=== PATIENT | male | born 1950 | race Caucasian/White ===

== ENCOUNTER 2017-11-27 23:31 | Emergency (ER) | payer MEDICARE, OTHER ==
[~2017-11-27] VITALS: Ht 188 cm; Wt 98.0 kg
[~2017-11-27 23:31] MED LIST: ASPI325; CARB200 PO; CLIN300; COU; CYAN1000; CYAN1000I; CYAN1000I IM; Coumadin; ENOX120I SC; ERGO400 PO; GABA300; HYDACE5 PO; HYDR1TAB94 PO; Hair, Skin & N1 EACH PO; LAMO100 PO; LISI10; Norco 5-325 Ta1 EACH PO; OXYACE5T PO; RXOXYACE PO; TRAM50 PO; WARF10; WARF10 PO; WARF5 PO
[2017-11-28 00:33] LABS: BASOPHILS ABSOLUTE AUTO 0.04 K/mm3 (0.00-0.23); BASOPHILS PERCENT AUTO 1 % (0-2); EOSINOPHILS ABSOLUTE AUTO 0.15 K/mm3 (0.00-0.68); EOSINOPHILS PERCENT AUTO 3 % (0-6); Hematocrit 31.8 % (37.0-53.0); Hemoglobin 10.8 g/dL (13.5-17.5); IMMATURE GRAN ABSOLUTE AUTO 0.01 K/mm3 (0.00-0.10); IMMATURE GRAN PERCENT AUTO 0 % (0-1); LYMPHOCYTES ABSOLUTE AUTO 1.28 K/mm3 (0.84-5.20); LYMPHOCYTES PERCENT AUTO 29 % (21-46); MONOCYTES ABSOLUTE AUTO 0.56 K/mm3 (0.16-1.47); MONOCYTES PERCENT AUTO 13 % (4-13); Mean Corpuscular HGB 33.1 pg (26.0-34.0); Mean Corpuscular Volume 98 fL (80-100); Mean Platelet Volume 8.3 fL (9.1-12.4); NEUTROPHILS ABSOLUTE AUTO 2.34 K/mm3 (1.96-9.15); NEUTROPHILS PERCENT AUTO 54 % (41-73); Platelet Count 226 K/mm3 (150-400); RDW Coefficient Variation 13.4 % (11.7-14.2); RDW Standard Deviation 48.6 fL (35.1-46.3); Red Blood Cell Count 3.26 M/mm3 (4.30-5.90); White Blood Cell Count 4.38 K/mm3 (4.00-11.30)
[2017-11-28 00:52] LABS: Alanine Aminotransfer (ALT/SGP 26 U/L (12-78); Albumin, Blood 3.7 g/dL (3.4-5.0); Albumin/Globulin Ratio 1.1 (0.8-1.8); Alk Phos 83 U/L (50-136); Anion Gap 8 mmol/L (6-16); Aspartate Aminotrans (AST/SGOT 19 U/L (12-37); Bilirubin, Total 0.4 mg/dL (0.1-1.0); Blood Urea Nitrogen 14 mg/dL (8-24); Bun/Creatinine Ratio 16.7 (12.0-20.0); CO2, Blood 28 mmol/L (21-32); Calcium, Blood 8.5 mg/dL (8.5-10.1); Chloride, Blood 97 mmol/L (98-108); Creatinine, Blood 0.84 mg/dL (0.60-1.20); Globulin, Blood 3.5 g/dL (2.2-4.0); Glomerular Filtration Rate >60 (60-); Glucose, Blood 88 mg/dL (70-99); Potassium, Blood 4.3 mmol/L (3.5-5.5); Sodium, Blood 133 mmol/L (136-145); Total Protein, Blood 7.2 g/dL (6.4-8.2)
[2017-11-28 02:31] LABS: International Normalized Ratio 2.3; Prothrombin Time Results 24.5 Sec (9.7-11.5)
== END 2017-11-28 02:39 | disposition home or self-care (01) ==
LOC: ER 23:31
PROVIDERS: Emergency Medicine
DX: S80.01XA Contusion of right knee, initial encounter (principal); D68.51 Activated protein C resistance; F17.210 Nicotine dependence, cigarettes, uncomplicated; Z88.0 Allergy status to penicillin; Z88.8 Allergy status to other drugs, medicaments and biological substances; Z91.09 Other allergy status, other than to drugs and biological substances; Z88.6 Allergy status to analgesic agent; Z91.02 Food additives allergy status; Z91.018 Allergy to other foods; Z79.01 Long term (current) use of anticoagulants; Z79.899 Other long term (current) drug therapy; Z86.73 Personal history of transient ischemic attack (TIA), and cerebral infarction without residual deficits; X58.XXXA Exposure to other specified factors, initial encounter
CPT/HCPCS: 36415; 80053; 85025; 85610; 85730; 93971; 99284

== ENCOUNTER → 2019-04-30 | Outpatient (CLI) | payer MEDICARE, OTHER | END | disposition home or self-care (01) | LOC: LAB SHORT 07:36 → LAB 07:36 | PROVIDERS: Nurse Practitioner | DX: Z12.5 Encounter for screening for malignant neoplasm of prostate (principal); N39.8 Other specified disorders of urinary system; N39.0 Urinary tract infection, site not specified | CPT/HCPCS: 87086; G0103 ==

== ENCOUNTER 2019-07-20 20:55 | Emergency (ER) | payer MEDICARE, OTHER ==
[~2019-07-20] VITALS: Ht 188 cm; Wt 108.9 kg
[2019-07-20 21:36] LABS: BASOPHILS ABSOLUTE AUTO 0.08 K/mm3 (0.00-0.23); BASOPHILS PERCENT AUTO 1 % (0-2); EOSINOPHILS ABSOLUTE AUTO 0.21 K/mm3 (0.00-0.68); EOSINOPHILS PERCENT AUTO 3 % (0-6); Hematocrit 38.7 % (37.0-53.0); Hemoglobin 12.6 g/dL (13.5-17.5); IMMATURE GRAN ABSOLUTE AUTO 0.02 K/mm3 (0.00-0.10); IMMATURE GRAN PERCENT AUTO 0 % (0-1); LYMPHOCYTES PERCENT AUTO 13 % (21-46); MONOCYTES ABSOLUTE AUTO 0.99 K/mm3 (0.16-1.47); MONOCYTES PERCENT AUTO 13 % (4-13); Mean Corpuscular HGB 31.7 pg (26.0-34.0); Mean Corpuscular HGB Conc 32.6 g/dL (31.5-36.5); Mean Corpuscular Volume 97 fL (80-100); Mean Platelet Volume 8.3 fL (9.1-12.4); NEUTROPHILS ABSOLUTE AUTO 5.19 K/mm3 (1.96-9.15); NEUTROPHILS PERCENT AUTO 69 % (41-73); Platelet Count 251 K/mm3 (150-400); RDW Coefficient Variation 13.3 % (11.7-14.2); RDW Standard Deviation 48.2 fL (35.1-46.3); Red Blood Cell Count 3.98 M/mm3 (4.30-5.90); White Blood Cell Count 7.49 K/mm3 (4.00-11.30)
[2019-07-20 21:50] LABS: Source, Urine Clean Catch
[2019-07-20 21:53] LABS: Alanine Aminotransfer (ALT/SGP 31 U/L (12-78); Albumin, Blood 3.7 g/dL (3.4-5.0); Albumin/Globulin Ratio 0.9 (0.8-1.8); Alk Phos 110 U/L (50-136); Anion Gap 6 mmol/L (6-16); Aspartate Aminotrans (AST/SGOT 44 U/L (12-37); Bilirubin, Total 0.3 mg/dL (0.1-1.0); Blood Urea Nitrogen 14 mg/dL (8-24); CO2, Blood 28 mmol/L (21-32); Calcium, Blood 8.9 mg/dL (8.5-10.1); Chloride, Blood 102 mmol/L (98-108); Creatinine, Blood 1.17 mg/dL (0.60-1.20); Glomerular Filtration Rate >60 (60-); Glucose, Blood 107 mg/dL (70-99); Potassium, Blood 3.9 mmol/L (3.5-5.5); Sodium, Blood 136 mmol/L (136-145); Total Protein, Blood 7.7 g/dL (6.4-8.2)
[2019-07-20 21:53] LABS: Bilirubin, Urine Neg (Neg); Blood, Urine 5+ (Neg); Glucose Qualitative, Urine Neg (Neg); Ketones, Urine Neg (Neg); Leukocyte Esterase, Urine Neg (Neg); Nitrite, Urine Neg (Neg); Protein, Urine 2+ (Neg); Urobilinogen, Urine NORM (Normal)
[2019-07-20 22:00] LABS: Appearance, Urine Clear (Clear); Color, Urine Yellow (P-Yellow)
[2019-07-20 22:03] LABS: Bacteria Not Seen /hpf; Red Blood Cells, Urine TNTC /hpf (0-2); Squamous Epithelial Cells Not Seen /hpf (Few); White Blood Cells, Urine Not Seen /hpf (0-5)
[2019-07-21] MEDS ORDERED: Belladonna-Opi1 EACH PR (01:17)
== END 2019-07-21 01:30 | disposition home or self-care (01) ==
LOC: ER 20:55
PROVIDERS: Emergency Medicine
DX: R33.9 Retention of urine, unspecified (principal); F17.210 Nicotine dependence, cigarettes, uncomplicated; Z86.73 Personal history of transient ischemic attack (TIA), and cerebral infarction without residual deficits; Z88.0 Allergy status to penicillin; Z88.8 Allergy status to other drugs, medicaments and biological substances; Z91.041 Radiographic dye allergy status; Z91.018 Allergy to other foods; Z79.899 Other long term (current) drug therapy; Z79.01 Long term (current) use of anticoagulants
CPT/HCPCS: 36415; 51702; 74176; 80053; 81001; 83690; 85025; 96361; 96374; 96375; 96376; 99284-25; A9270; J1170; J2405; J7030

== ENCOUNTER 2019-07-22 09:43 | Emergency (ER) | payer MEDICARE, OTHER ==
[~2019-07-22] VITALS: Ht 188 cm; Wt 112.0 kg
[~2019-07-22 09:43] MED LIST changes: +Belladonna-Opi1 EACH PR
[2019-07-22 10:34] LABS: BASOPHILS ABSOLUTE AUTO 0.04 K/mm3 (0.00-0.23); BASOPHILS PERCENT AUTO 0 % (0-2); EOSINOPHILS ABSOLUTE AUTO 0.02 K/mm3 (0.00-0.68); EOSINOPHILS PERCENT AUTO 0 % (0-6); Hematocrit 41.1 % (37.0-53.0); Hemoglobin 13.7 g/dL (13.5-17.5); IMMATURE GRAN ABSOLUTE AUTO 0.06 K/mm3 (0.00-0.10); IMMATURE GRAN PERCENT AUTO 1 % (0-1); LYMPHOCYTES ABSOLUTE AUTO 0.78 K/mm3 (0.84-5.20); LYMPHOCYTES PERCENT AUTO 6 % (21-46); MONOCYTES ABSOLUTE AUTO 1.31 K/mm3 (0.16-1.47); MONOCYTES PERCENT AUTO 10 % (4-13); Mean Corpuscular HGB 31.4 pg (26.0-34.0); Mean Corpuscular HGB Conc 33.3 g/dL (31.5-36.5); Mean Platelet Volume 8.8 fL (9.1-12.4); NEUTROPHILS PERCENT AUTO 83 % (41-73); Platelet Count 296 K/mm3 (150-400); RDW Coefficient Variation 13.2 % (11.7-14.2); RDW Standard Deviation 46.1 fL (35.1-46.3); Red Blood Cell Count 4.37 M/mm3 (4.30-5.90); White Blood Cell Count 13.11 K/mm3 (4.00-11.30)
[2019-07-22 10:43] LABS: Mean Corpuscular Volume 94 fL (80-100)
[2019-07-22 10:47] LABS: Albumin, Blood 3.6 g/dL (3.4-5.0); Albumin/Globulin Ratio 0.8 (0.8-1.8); Bilirubin, Total 0.8 mg/dL (0.1-1.0); Calcium, Blood 8.9 mg/dL (8.5-10.1); Creatinine, Blood 1.36 mg/dL (0.60-1.20); Globulin, Blood 4.4 g/dL (2.2-4.0); Potassium, Blood 4.1 mmol/L (3.5-5.5)
[2019-07-22 11:29] LABS: Source, Urine Clean Catch
[2019-07-22 11:30] LABS: Prothrombin Time Results 43.4 Sec (9.7-11.5)
[2019-07-22 11:34] LABS: Bilirubin, Urine Neg (Neg); Blood, Urine 5+ (Neg); Glucose Qualitative, Urine Neg (Neg); Ketones, Urine Neg (Neg); Leukocyte Esterase, Urine 3+ (Neg); Nitrite, Urine Neg (Neg); Protein, Urine 2+ (Neg); Specific Gravity, Urine 1.005 (1.003-1.022); Urobilinogen, Urine NORM (Normal)
[2019-07-22 11:36] LABS: International Normalized Ratio 4.71
[2019-07-22 11:44] LABS: Appearance, Urine Hazy (Clear); Color, Urine Amber (P-Yellow)
[2019-07-22 11:49] LABS: Bacteria Few /hpf; Red Blood Cells, Urine TNTC /hpf (0-2); Squamous Epithelial Cells Not Seen /hpf (Few)
== END 2019-07-22 14:15 | disposition short-term general hospital (02) ==
LOC: ER 09:43
PROVIDERS: Emergency Medicine; Internal Medicine
DX: N13.30 Unspecified hydronephrosis (principal); Z88.0 Allergy status to penicillin; Z88.8 Allergy status to other drugs, medicaments and biological substances; Z91.09 Other allergy status, other than to drugs and biological substances; Z91.02 Food additives allergy status; Z88.6 Allergy status to analgesic agent; Z91.018 Allergy to other foods; Z79.899 Other long term (current) drug therapy; Z79.01 Long term (current) use of anticoagulants; Z86.73 Personal history of transient ischemic attack (TIA), and cerebral infarction without residual deficits; Z87.891 Personal history of nicotine dependence
CPT/HCPCS: 36415; 51798; 76770; 80053; 81001; 85025; 85610; 96374; 96375; 96376; 99285-25; J1170; J2405

== ENCOUNTER 2019-08-09 03:25 | Inpatient (IN) | payer MEDICARE, OTHER ==
[~2019-08-09] VITALS: Ht 188 cm; Wt 104.2 kg
[2019-08-09] MEDS ORDERED: ENOXAPARIN150 MG/1 M SC (03:56)
[2019-08-09] MEDS ORDERED: ZOFRAN8 MG PO (03:56)
[2019-08-09] MEDS ORDERED: OXYC10TA19 (03:56)
[2019-08-09] MEDS ORDERED: CARVEDILOL6.25 MG PO (03:57)
[2019-08-09 04:01] LABS: BASOPHILS ABSOLUTE AUTO 0.15 K/mm3 (0.00-0.23); BASOPHILS PERCENT AUTO 2 % (0-2); EOSINOPHILS ABSOLUTE AUTO 0.29 K/mm3 (0.00-0.68); EOSINOPHILS PERCENT AUTO 3 % (0-6); Hematocrit 38.9 % (37.0-53.0); Hemoglobin 12.8 g/dL (13.5-17.5); IMMATURE GRAN ABSOLUTE AUTO 0.05 K/mm3 (0.00-0.10); IMMATURE GRAN PERCENT AUTO 1 % (0-1); LYMPHOCYTES ABSOLUTE AUTO 1.37 K/mm3 (0.84-5.20); LYMPHOCYTES PERCENT AUTO 15 % (21-46); MONOCYTES ABSOLUTE AUTO 0.75 K/mm3 (0.16-1.47); MONOCYTES PERCENT AUTO 8 % (4-13); Mean Corpuscular HGB 31.1 pg (26.0-34.0); Mean Corpuscular HGB Conc 32.9 g/dL (31.5-36.5); Mean Corpuscular Volume 95 fL (80-100); Mean Platelet Volume 8.2 fL (9.1-12.4); NEUTROPHILS ABSOLUTE AUTO 6.34 K/mm3 (1.96-9.15); NEUTROPHILS PERCENT AUTO 71 % (41-73); Platelet Count 417 K/mm3 (150-400); RDW Coefficient Variation 13.1 % (11.7-14.2); RDW Standard Deviation 44.9 fL (35.1-46.3); Red Blood Cell Count 4.11 M/mm3 (4.30-5.90); White Blood Cell Count 8.95 K/mm3 (4.00-11.30)
[2019-08-09 04:14] LABS: Alanine Aminotransfer (ALT/SGP 36 U/L (12-78); Albumin, Blood 3.3 g/dL (3.4-5.0); Albumin/Globulin Ratio 0.7 (0.8-1.8); Alk Phos 162 U/L (50-136); Anion Gap 7 mmol/L (6-16); Aspartate Aminotrans (AST/SGOT 33 U/L (12-37); Bilirubin, Total 0.3 mg/dL (0.1-1.0); Blood Urea Nitrogen 9 mg/dL (8-24); Bun/Creatinine Ratio 9.1 (12.0-20.0); CO2, Blood 28 mmol/L (21-32); Calcium, Blood 9.2 mg/dL (8.5-10.1); Chloride, Blood 99 mmol/L (98-108); Creatinine, Blood 0.99 mg/dL (0.60-1.20); Globulin, Blood 4.9 g/dL (2.2-4.0); Glomerular Filtration Rate >60 (60-); Glucose, Blood 104 mg/dL (70-99); Potassium, Blood 4.4 mmol/L (3.5-5.5); Sodium, Blood 134 mmol/L (136-145); Total Protein, Blood 8.2 g/dL (6.4-8.2)
[2019-08-09 05:56] LABS: Magnesium, Blood 2.2 mg/dL (1.6-2.4)
[2019-08-09 05:58] LABS: Thyroid Stimulating Hormone 2.76 uIU/mL (0.360-4.800)
[2019-08-09] MEDS ORDERED: LEVSOD50 PO (06:26)
--- NOTE | 2019-08-09 07:34 | NUR ---
PCU NOC SHIFT- ADMIT SUMMARY PATIENT ARRIVE AT APPROX 0620. DENIES ANY PAIN. BILATERAL NEPHROSTOMY TUBES NOTED TO BE DRAINING CLOUDLY, SEDIMENT YELLOW URINE. PATIENT REMAINS IN FLUTTER IN THE 90-105. NO RASH NOTED. ABD TENDER OVER INJECTIONS SITES FROM NIANTIC (HORMONE REDUCERS PER PT) - MILD REDNESS NOTED X2. PATIENT ON ROOM AIR, RESP E/U. PATIENT DENIES ANY NEEDS. CALL LIGHT W/I REACH. ADMIN HISTORY COMPLETED.
--- NOTE | 2019-08-09 08:00 | NUR ---
REPORT FROM SATURNINO MOLINA. PT LYING IN BED. DILT DRIP INF AT 20MG/HR RATE DECREASED TO 15MG. HR 90-110'S. ASSESSMENT CHARTED IN ADMISSION ASSESSMENT RATHER THAN SHIFT ASSESSMENT PT HAD JUST ARRIVED AND ADMISSION ASSESSMENT WAS NOT COMPLETED BY YESY RN. VSS. RHYTHM STILL A-FLUTTER WITH RVR. SPOUSE AT BEDSIDE AND CONCERNED WITH NEPH TUBE DRESSINGS AND "LEAKING" ON RT SIDE. GAUZE UNDER TEGADERM APPEARS DISCOLORED ON RT SIDE. AND DRESSING HAS PEELED UPWARD FROM THE BOTTOM. URINE IS CLOUDY. ORDER TO OBTAIN UA IN ER NOT YET DONE. URINE COLLECTED FROM BOTH TUBES AND SENT UP TO LAB IN SEPARATE COLLECTION CANISTERS. WILL CHANGE DRESSING WITH SPOUSE PRESENT SO SHE KNOWS HOW. CALL LIGHT IN REACH.
[2019-08-09 11:32] LABS: Source, Urine Clean Catch
[2019-08-09 11:37] LABS: Bilirubin, Urine Neg (Neg); Blood, Urine 2+ (Neg); Glucose Qualitative, Urine Neg (Neg); Ketones, Urine Neg (Neg); Leukocyte Esterase, Urine 3+ (Neg); Nitrite, Urine Pos (Neg); Protein, Urine 3+ (Neg); Specific Gravity, Urine 1.005 (1.003-1.022); Urobilinogen, Urine NORM (Normal)
--- NOTE | 2019-08-09 12:06 | NUR ---
Echocardiogram completed.
[2019-08-09 12:14] LABS: Appearance, Urine Hazy (Clear); Bacteria Few /hpf; Color, Urine Yellow (P-Yellow); Squamous Epithelial Cells Not Seen /hpf (Few)
[2019-08-09 13:37] LABS: Source, Urine Urostomy Bag
[2019-08-09 14:06] LABS: Appearance, Urine Hazy (Clear); Bilirubin, Urine Neg (Neg); Blood, Urine 3+ (Neg); Color, Urine Yellow (P-Yellow); Glucose Qualitative, Urine Neg (Neg); Ketones, Urine Neg (Neg); Leukocyte Esterase, Urine 3+ (Neg); Nitrite, Urine Neg (Neg); Protein, Urine 3+ (Neg); Urobilinogen, Urine NORM (Normal); pH, Urine 6.5 (5.0-8.0)
[2019-08-09 14:48] LABS: Bacteria Many /hpf; Mucus Light (0-Heavy); Squamous Epithelial Cells Rare /hpf (Few)
--- NOTE | 2019-08-09 18:55 | NUR ---
[id number] HUB LEAD AND BILAT FLANK DRESSING CHANGE PERFORMED. PT SAT UP AT EDGE OF BED, LEANED OVER SIDE TABLE WITH PILLOW. OLD DRESSING TAKEN DOWN AND STERILE PROCEDURE USED TO REPLACE DRESSINGS. RIGHT NEPHROSTOMY TUBE INSERTION SITE SLIGHTLY RED WITH NO S/S OF INFECTION SURROUNDING THE INSERTION. TUBING SECURED WITH SUTURES. SURROUNDING TISSUE AND TUBE CLEANED. BIO PATCH PLACED, DRAIN GAUZE PAD PLACED ON TOP, STERILE 4X4'S FOLDED AND PLACED FOR SEEPAGE UNDER DRAIN TUBE. DRSG COVERED WITH LARGE TEGADERM. SPLIT TEGADERM PATCH PLACED UPWARD TO SECURE TUBE FROM PULLING DRESSING UPWARD. DRSG DATED, TIMED AND INITIALED. SAME PROCEDURE DONE TO LEFT FLANK DRESSING. HOWEVER, INSERTION SITE WAS A LITTLE GUNKY ON THE BIO PATCH, CRUSTED ON THE TUBE AND SKIN REDNESS EXTENDED SLIGHTLY OUTWARD FROM THE INSERTION SITE - MORE SO THAN ON THE RIGHT. COLLECTION BAGS AND TUBING WERE GREEN IN COLOR AND TUBE HAD A PUS FILM T/O. COLLECTION BAGS REPLACED. URINE CLEAR AND YELLOW. WAS PRESENT FOR ENTIRE PROCEDURE. TALKED TO HER THROUGHOUT EACH STEP SO SHE FELT COMFORTABLE DOING A DRESSING CHANGE AT HOME IF NEEDED. SHE VERBALIZED AND EXPRESSED AND UNDERSTANDING OF WHAT TO WATCH FOR TO MAINTAIN HEALTHY SKIN INTEGRITY TO SURROUNDING AREA. PT TOLERATED WELL. BED RETURNED TO LOW POSITION, KNEES RAISED, FAN PROVIDED, CALL LIGHT IN REACH.
--- NOTE | 2019-08-09 19:00 | NUR ---
REPORT GIVEN TO DORIS MOLINA. PT LYING IN BED, REPORTING SOME DISCOMFORT TO BILAT FLANKS. NO PAIN MEDS ORDERED AT THIS TIME. PT INFORMED TO LET RN KNOW IF IT GETS TO BE TOO UNCOMFORTABLE AND A CALL CAN BE PLACED FOR A MEDICATION ORDER. PT STATES HE IS FIME AT THIS TIME. SPOUSE WAS OUT OF ROOM INITIALLY. SHE RETURNED DURING BEDSIDE REPORT AND INTRODUCED TO YESY MOLINA. CARDIZEM DRIP STILL INFUSING. 1700 DOSE OF COREG GIVEN. LEVAQUIN ALSO GIVEN AROUND 1730 AFTER BEING REC'D FROM PHARMACY AND SECOND IV ESTABLISHED. ATTEMPTED TO NOTIFY DR. MANRIQUE TO WHY THE 0800 DOSE OF COREG WAS NOT GIVEN. SHE HAD APPARENTLY DC'D THE INITIAL MED ORDER FOR THE PURPOSE OF INCREASING THE DOSE. HOWEVER, SHE HAD DONE SO AFTER THE 0800 DOSE WAS DUE. THIS CAUSED THE COMPUTER SYSTEM TO TIME THE "NEXT DOSE" FOR 1700. WHICH WOULD HAVE REQUIRED AN ADDITIONAL "OT GIVE NOW" ORDER TO HAVE BEEN PLACED FOR THE AM DOSE. INSTEAD, IT LOOKED THOUGH THE MED WAS CANCELLED FOR THE AM DOSE AND WAS TO BEGIN WITH THE 1700 DOSE. RESULTING IN A DELAY OF ADMINISTERING THE AM MEDICATION. PT HAD REMAINED ON THE CARDIZEM DRIP T/O THE DAY WITH A BRIEF PERIOD OF TIME BETWEEN BAGS WITH NO MED BEING ADMINISTERED. DURING THIS TIME PT'S HR JUMPED BACK UP TO 150'S THIS WAS BRIEF WELL UNTIL NEXT BAG WAS INITIATED. PT HAD NO SIG CHANGES T/O THIS SHIFT. BP WAS OF NO CONCERN DURING CARDIZEM TREATMENT. SBP REMAINED >140. HR T/O THE DAY FLUCTUATED BUT MOSTLY REMAINED 90-110'S. ASYMPTOMATIC WITH RVR. CALL LIGHT AND PERSONAL ITEMS WITHIN REACH. SPOUSE AT BEDSIDE IN RECLINER.
--- NOTE | 2019-08-09 21:47 | NUR ---
PROVIDER CONTACTED PT REPORTING SOME NAUSEA THIS EVENING. REQUESTING SOME ZOFRAN. PROVIDER, LILLIE, CONTACTED AND ORDERS RECEIVED FOR ZOFRAN 4 MG Q6 PRN.WILL INPUT ORDERS AND ADMINISTER.
[2019-08-10 05:45] LABS: BASOPHILS ABSOLUTE AUTO 0.08 K/mm3 (0.00-0.23); BASOPHILS PERCENT AUTO 1 % (0-2); EOSINOPHILS ABSOLUTE AUTO 0.27 K/mm3 (0.00-0.68); EOSINOPHILS PERCENT AUTO 3 % (0-6); Hematocrit 34.4 % (37.0-53.0); Hemoglobin 11.1 g/dL (13.5-17.5); IMMATURE GRAN ABSOLUTE AUTO 0.07 K/mm3 (0.00-0.10); IMMATURE GRAN PERCENT AUTO 1 % (0-1); LYMPHOCYTES ABSOLUTE AUTO 0.91 K/mm3 (0.84-5.20); LYMPHOCYTES PERCENT AUTO 10 % (21-46); MONOCYTES ABSOLUTE AUTO 0.81 K/mm3 (0.16-1.47); MONOCYTES PERCENT AUTO 8 % (4-13); Mean Corpuscular HGB 30.9 pg (26.0-34.0); Mean Corpuscular HGB Conc 32.3 g/dL (31.5-36.5); Mean Corpuscular Volume 96 fL (80-100); Mean Platelet Volume 7.9 fL (9.1-12.4); NEUTROPHILS ABSOLUTE AUTO 7.48 K/mm3 (1.96-9.15); NEUTROPHILS PERCENT AUTO 78 % (41-73); Platelet Count 318 K/mm3 (150-400); RDW Coefficient Variation 13.2 % (11.7-14.2); RDW Standard Deviation 46.5 fL (35.1-46.3); Red Blood Cell Count 3.59 M/mm3 (4.30-5.90); White Blood Cell Count 9.62 K/mm3 (4.00-11.30)
--- NOTE | 2019-08-10 05:51 | NUR ---
SHIFT SUMMARY PT HAS REMAINED AOX4 THROUGHOUT SHIFT. PLEASANT AND COOPERATIVE WITH CARE. HEART RHYTHM HAS REMAINED IN A-FLUTTER, HEART RATE CONTINUES TO FLUCTUATE BETWEEN 90-140. CARDIZEM CONTINUES TO INFUSE AND IS BEING TITRATED TO EFFECT. PT CONTINUES TO AMBULATE TO BATHROOM INDEPENDENTLY WITHOUT DIFFICULTY. BILATERAL NEPHROSTOMY DRESSINGS CHANGED 08/09/19, REMAIN CLEAN AND INTACT. NEPHROSTOMIES BOTH DRAINING CLEAR, YELLOW URINE. PT REPORTS THAT HE WILL OCCASIONALLY HAVE OUTPUT FROM URETHRA, TODAY OUTPUT WAS DARK WITH FOUL ODOR- PT STATES THAT HE WILL COLLECT THE NEXT TIME. MEDICATED PATIENT TWICE FOR NAUSEA THAT DECREASED WITH ORDERED MEDICATIONS. NO OTHER CHANGES NOTED FROM INITIAL ASSESSMENT. WILL CONTINUE TO MONITOR AND REPORT TO ONCOMING SHIFT RN. BED IN LOW POSITION CALL LIGHT IN REACH.
[2019-08-10 05:57] LABS: Anion Gap 7 mmol/L (6-16); Blood Urea Nitrogen 10 mg/dL (8-24); Bun/Creatinine Ratio 10.3 (12.0-20.0); CO2, Blood 27 mmol/L (21-32); Calcium, Blood 8.9 mg/dL (8.5-10.1); Chloride, Blood 97 mmol/L (98-108); Creatinine, Blood 0.97 mg/dL (0.60-1.20); Glomerular Filtration Rate >60 (60-); Glucose, Blood 99 mg/dL (70-99); Magnesium, Blood 2.1 mg/dL (1.6-2.4); Potassium, Blood 4.4 mmol/L (3.5-5.5); Sodium, Blood 131 mmol/L (136-145)
--- NOTE | 2019-08-10 07:30 | NUR ---
ASSUMED CARE: PT RESTING QUIETLY AT THIS TIME. NO ACUTE DISTRESS.
--- NOTE | 2019-08-10 16:18 | NUR ---
WAS ABLE TO TITRATE PT OFF CARDIZEM AND STAYED OFF FOR A FEW HOURS BUT BEGAN TO CLIMB BACK INTO 130S. DISCUSSED WITH DR MANRIQUE WHO ORDERED INCREASE IN THE COREG AND TO RESTART CARDIZEM. PT C/O CONSTANT NAUSEA THAT WORSENS WITH MEALS. ORDERS FOR MEAL TIME REGLAN. ASKED IF CARDIOLOGY NEEDS TO BE INVOLVED OR IF FLUIDS SHOULD BE ORDERED. ORDER FOR [address] RASHEED WILL CONSULT CARDIOLOGY IN AM IF THESE INTERVENTIONS DO NOT HELP. PT'S FAMILY AWARE AND AGREEABLE TO PLAN
--- NOTE | 2019-08-10 18:11 | NUR ---
SHIFT SUMMARY: CARDIZEM GTT BACK AT 5ML/HR. PT DENIES CP OR SOB. HR IN 80S-LOW 100S AT THIS TIME. RECIEVING FLUIDS AND ABX FOR INFECTION. POSSIBLE CARDIOLOGY CONSULT IN AM IF NO PROGRESS OVERNIGHT. FAMILY AGREEABLE TO THIS. NEPHROSTOMIES DRAINING CLEAR YELLOW AT END OF SHIFT. NAUSEA MEDS ORDERED FOR MEALS. FAMILY AT BEDSIDE. NO FURTHER NEEDS OR CONCERNS AT THIS TIME.
--- NOTE | 2019-08-10 22:00 | NUR ---
UPDATE CARDIZEM TITRATED OFF APPROX 30 MINUTES BEFORE SHIFT CHANGE PER DAY SHIFT RN REPORT. CARDIZEM RESTARTED AT 10 AT APROX 2141 DUE TO HEART RATE RUNNING IN THE 120'S-130'S PER NAIL MAKING MACHINE SETTER.
--- NOTE | 2019-08-11 06:32 | NUR ---
SHIFT SUMMARY PATIENT PLEASENT AND COOPERATIVE THROUGHOUT THE NIGHT. PATIENT APPEARED TO NAP OFF AND ON LAST NIGHT. PATIENT STATED THAT HE DID NOT SLEEP TOO WELL LAST NIGHT AND WILL CONSIDER TODAY IF HE WOULD LIKE A SLEEPING MEDICATION TONIGHT IF HE IS STILL HERE. URINE PUT OUT BY BILATERAL NEPHROSTOMYS APPEARS CLEAR AND YELLOW AT THIS TIME. PATIENT REPORTS HIS URINE LOOKS "A LOT BETTER." PATIENT CURRENTLY RESTING IN BED. WILL CONTINUE TO MONITOR PATIENT AND REPORT TO ONCOMING RN.
--- NOTE | 2019-08-11 07:24 | NUR ---
ASSUMED CARE: PT SITTING IN BED AT THIS TIME. CARDIZEM GTT AT 10 MLS/HR. HR 90-1TEENS. NAUSEA MEDS TO BE ADMINISTERED BEFORE BREAKFAST. DENIES FURTHER NEEDS AT THIS TIME.
[2019-08-11 08:16] LABS: BASOPHILS ABSOLUTE AUTO 0.07 K/mm3 (0.00-0.23); BASOPHILS PERCENT AUTO 1 % (0-2); EOSINOPHILS PERCENT AUTO 3 % (0-6); Hematocrit 35.3 % (37.0-53.0); Hemoglobin 11.6 g/dL (13.5-17.5); IMMATURE GRAN ABSOLUTE AUTO 0.05 K/mm3 (0.00-0.10); IMMATURE GRAN PERCENT AUTO 1 % (0-1); LYMPHOCYTES ABSOLUTE AUTO 0.85 K/mm3 (0.84-5.20); LYMPHOCYTES PERCENT AUTO 11 % (21-46); MONOCYTES PERCENT AUTO 8 % (4-13); Mean Corpuscular HGB 30.6 pg (26.0-34.0); Mean Corpuscular HGB Conc 32.9 g/dL (31.5-36.5); Mean Platelet Volume 8.2 fL (9.1-12.4); NEUTROPHILS ABSOLUTE AUTO 6.02 K/mm3 (1.96-9.15); NEUTROPHILS PERCENT AUTO 77 % (41-73); Platelet Count 291 K/mm3 (150-400); RDW Coefficient Variation 13.1 % (11.7-14.2); RDW Standard Deviation 44.7 fL (35.1-46.3); Red Blood Cell Count 3.79 M/mm3 (4.30-5.90); White Blood Cell Count 7.79 K/mm3 (4.00-11.30)
[2019-08-11 08:20] LABS: Mean Corpuscular Volume 93 fL (80-100)
[2019-08-11 08:36] LABS: Vancomycin, Trough 16.6 ug/mL (5.0-10.0)
[2019-08-11 08:42] LABS: Anion Gap 8 mmol/L (6-16); Blood Urea Nitrogen 11 mg/dL (8-24); Bun/Creatinine Ratio 12.2 (12.0-20.0); CO2, Blood 25 mmol/L (21-32); Calcium, Blood 8.7 mg/dL (8.5-10.1); Chloride, Blood 97 mmol/L (98-108); Glomerular Filtration Rate >60 (60-); Glucose, Blood 95 mg/dL (70-99); Phosphorus, Blood 3.4 mg/dL (2.5-4.9); Potassium, Blood 4.3 mmol/L (3.5-5.5); Sodium, Blood 130 mmol/L (136-145)
--- NOTE | 2019-08-11 15:13 | NUR ---
DR ELLIS REVIEWED PT'S TELE AND ASKED IF PO CARDIZEM HAD BEEN GIVEN. CALL TO DR MANRIQUE TO ASK IF ORAL CARDIZEM SHOULD BE GIVEN. REVIEWED WITH PT'S WHO STATED PT HAD HISTORY OF HIVES WITH CARDIZEM. REVIEW OF [facility] RECORDS CONFIRMED THIS. PT ALSO HAS REDDENED AREA TO RIGHT THIGH THAT LINE HAS BEEN DRAWN. CALL TO DR MANRIQUE TO REVIEW THIS. DR CAME AND LOOKED AT REDDENED AREAS AND CONFIRMED THAT IT COULD BE HIVES. DR STATES TO HOLD PO CARDIZEM AND TO LET HER KNOW IF HR INCREASES
--- NOTE | 2019-08-11 17:42 | NUR ---
SHIFT SUMMARY: DR ELLIS WENT INTO ROOM AND SPOKE WITH PT AND FAMILY. DUE TO DILTIAZEM ALLERGY PLAN IS TO USE COREG AND DIGOXIN IF NEEDED. PT CURRENTLY IN 130S. DR ELLIS STATED TO GIVE HIM A LITTLE TIME DUE TO RECENT CONVERSATION. WILL CONTINUE TO MONITOR. FAMILY AT BEDSIDE. NO FURTHER NEEDS AT THIS TIME.
--- NOTE | 2019-08-11 18:30 | NUR ---
CONTACTED DR ELLIS DUE TO PT'S HR IN 130S AND SUSTAINING FOR 40 MINUTES. ORDERS FOR 3 DOSES OF DIGOXIN. FAMILY AGREEABLE TO THIS PLAN
--- NOTE | 2019-08-12 03:18 | NUR ---
HR IN THE 130'S-140'S: DR ELLIS NOTIFIED THAT PATIENT'S HEART RATE HAS BEEN SUSTAINING IN THE 130'S-140'S FOR APPROAX THE LAST HOUR. DUE TO PATIENT BEING ASYMPTOMATIC NO ORDERES WERE RECIEVED AT THIS TIME. DR ELLIS SAID SHE WOULD BE IN TO SEE PATIENT IN A FEW HOURS THIS MORNING.
[2019-08-12 03:34] LABS: BASOPHILS ABSOLUTE AUTO 0.09 K/mm3 (0.00-0.23); BASOPHILS PERCENT AUTO 1 % (0-2); EOSINOPHILS ABSOLUTE AUTO 0.25 K/mm3 (0.00-0.68); EOSINOPHILS PERCENT AUTO 3 % (0-6); Hematocrit 35.4 % (37.0-53.0); Hemoglobin 11.7 g/dL (13.5-17.5); IMMATURE GRAN ABSOLUTE AUTO 0.03 K/mm3 (0.00-0.10); IMMATURE GRAN PERCENT AUTO 0 % (0-1); LYMPHOCYTES ABSOLUTE AUTO 0.92 K/mm3 (0.84-5.20); LYMPHOCYTES PERCENT AUTO 12 % (21-46); MONOCYTES PERCENT AUTO 9 % (4-13); Mean Corpuscular HGB 30.9 pg (26.0-34.0); Mean Corpuscular HGB Conc 33.1 g/dL (31.5-36.5); Mean Corpuscular Volume 93 fL (80-100); Mean Platelet Volume 8.2 fL (9.1-12.4); NEUTROPHILS ABSOLUTE AUTO 5.79 K/mm3 (1.96-9.15); NEUTROPHILS PERCENT AUTO 74 % (41-73); Platelet Count 306 K/mm3 (150-400); RDW Coefficient Variation 13.1 % (11.7-14.2); RDW Standard Deviation 44.6 fL (35.1-46.3); Red Blood Cell Count 3.79 M/mm3 (4.30-5.90); White Blood Cell Count 7.78 K/mm3 (4.00-11.30)
[2019-08-12 03:59] LABS: Alanine Aminotransfer (ALT/SGP 43 U/L (12-78); Albumin, Blood 2.9 g/dL (3.4-5.0); Albumin/Globulin Ratio 0.7 (0.8-1.8); Alk Phos 152 U/L (50-136); Anion Gap 7 mmol/L (6-16); Aspartate Aminotrans (AST/SGOT 49 U/L (12-37); Bilirubin, Total 0.4 mg/dL (0.1-1.0); Blood Urea Nitrogen 14 mg/dL (8-24); Bun/Creatinine Ratio 16.1 (12.0-20.0); CO2, Blood 26 mmol/L (21-32); Calcium, Blood 8.7 mg/dL (8.5-10.1); Chloride, Blood 95 mmol/L (98-108); Creatinine, Blood 0.87 mg/dL (0.60-1.20); Globulin, Blood 4.3 g/dL (2.2-4.0); Glomerular Filtration Rate >60 (60-); Glucose, Blood 96 mg/dL (70-99); Magnesium, Blood 2.1 mg/dL (1.6-2.4); Potassium, Blood 4.4 mmol/L (3.5-5.5); Sodium, Blood 128 mmol/L (136-145); Total Protein, Blood 7.2 g/dL (6.4-8.2)
[2019-08-12 04:07] LABS: Digoxin (Lanoxin) 0.52 ug/mL (0.80-2.00)
--- NOTE | 2019-08-12 07:30 | NUR ---
ASSUMED CARE: PT RESTING IN BED, ASKING IF IV SITE CAN BE MOVED. CURRENT IV FLUSHES APPROPRIATELY, NO SIGNS OF INFILTRATION. ATTEMPTED ONCE WITH NO SUCCESS, MALLET CUTTER AWARE OF PT'S WISH FOR NEW SITE. HR AFLUTTER, 1TEENS ON TELE. DR ELLIS HERE TO SEE PT. DISCUSSED PLAN REGARDING HR. PT'S WAS AT BEDSIDE FOR 'S CONVERSATION. PT APPEARS IN NO DISTRESS AT THIS TIME.
--- NOTE | 2019-08-12 07:31 | NUR ---
SHIFT SUMMARY PATIENT PLEASENT AND COOPERATIVE THROUGHOUT THE NIGHT. DRESSINGS TO BILATERAL NEPHROSTOMY TUBES C/D/I. PATIENT PROVIDED SLEEPING MEDICATION UPON REQUEST. PATIENT REPROTS HE THINKS IT HELPED A LITTLE BIT. PATIENT APPEARED TO NAP ON AND OFF THROUGHOUT THE NIGHT. DIGOXIN VITAL SIGNS CHARTED. PATIENT CURRENTLY RESTING IN BED, AT THE BEDSIDE. REPORT GIVEN TO ON COMING RN.
--- NOTE | 2019-08-12 19:15 | NUR ---
REPORT REC'D, HAVE CARED FOR THIS PT DURING THIS ADMISSION. PT LYING IN BED, TV ON. ARRIVED DURING ASSESSMENT. NEPHROSTOMY TUBES INTACT AND DRAINING INTO URINE COLLECTION BAGS. DRGS CDI. LT DRSG WAS THE ONE I HAD CHANGED ON ADMISSION. THE RT DRST WAS CHANGED BY DAY SHIFT TO REPLACE THE BIO PATCH AND LOOSEN DRSG. INK [place] TRIBES ON RT THIGH NOTED BUT REDNESS FROM ALLERGIC REACTION NO LONGER PRESENT. POWER GLIDE MALIA INTACT AND PATENT. LEFT AC RED SWOLLEN AND TENDER, WILL PROVIDE HEAT PACK AND TYLENOL. VSS, ASSESSMENT NOTED. CALL LIGHT IN REACH. PT DENIES ANY NEEDS AT THIS TIME.
[2019-08-13 06:01] LABS: BASOPHILS ABSOLUTE AUTO 0.07 K/mm3 (0.00-0.23); BASOPHILS PERCENT AUTO 1 % (0-2); EOSINOPHILS ABSOLUTE AUTO 0.22 K/mm3 (0.00-0.68); EOSINOPHILS PERCENT AUTO 3 % (0-6); Hematocrit 33.9 % (37.0-53.0); Hemoglobin 11.2 g/dL (13.5-17.5); IMMATURE GRAN ABSOLUTE AUTO 0.06 K/mm3 (0.00-0.10); IMMATURE GRAN PERCENT AUTO 1 % (0-1); LYMPHOCYTES PERCENT AUTO 12 % (21-46); MONOCYTES ABSOLUTE AUTO 0.87 K/mm3 (0.16-1.47); MONOCYTES PERCENT AUTO 12 % (4-13); Mean Corpuscular HGB 30.7 pg (26.0-34.0); Mean Corpuscular Volume 93 fL (80-100); Mean Platelet Volume 8.2 fL (9.1-12.4); NEUTROPHILS ABSOLUTE AUTO 5.38 K/mm3 (1.96-9.15); NEUTROPHILS PERCENT AUTO 72 % (41-73); Platelet Count 304 K/mm3 (150-400); RDW Coefficient Variation 13.2 % (11.7-14.2); RDW Standard Deviation 44.8 fL (35.1-46.3); Red Blood Cell Count 3.65 M/mm3 (4.30-5.90)
[2019-08-13 06:26] LABS: Anion Gap 6 mmol/L (6-16); Blood Urea Nitrogen 14 mg/dL (8-24); CO2, Blood 28 mmol/L (21-32); Calcium, Blood 8.7 mg/dL (8.5-10.1); Chloride, Blood 94 mmol/L (98-108); Creatinine, Blood 0.88 mg/dL (0.60-1.20); Glomerular Filtration Rate >60 (60-); Glucose, Blood 103 mg/dL (70-99); Potassium, Blood 4.3 mmol/L (3.5-5.5); Sodium, Blood 128 mmol/L (136-145)
[2019-08-13 06:33] LABS: Digoxin (Lanoxin) 0.47 ug/mL (0.80-2.00)
--- NOTE | 2019-08-13 07:28 | NUR ---
SHIFT SUMMARY BEDSIDE REPORT GIVEN TO LILLIE RN AND SHANA RN. SPOUSE AT BEDSIDE. PT HAD QUESTIONS AND CONCERNS RE SETTING HIS ALARM EVERY 4 HOURS TO EMPTY HIS NEPHROSTOMY LEG BAGS. FULLER COLLECTION BAG ATTACHED TO NEPH BAG TUBING FOR LARGER VOLUME COLLECTION. AM DIGOXIN DOSE NOT GIVEN THIS AM - DIG LEVEL 0.45 MED GIVEN TO DAY SHIFT RN TO ADMINISTER AFTER MD SEES RESULTS AND POSSIBLY ADJUSTS DOSE. NO SIG CHANGES THIS SHIFT. PT'S HR REMAINED BELOW 100 PRETTY MUCH T/O THE NIGHT. CALL LIGHT IN REACH. NADN AT THIS TIME AND NO REQUESTS/NEEDS.
--- NOTE | 2019-08-13 09:09 | NUR ---
MD VISIT DR. CABRAL IN. WILL REVIEW MEDS. FROM HIS STANDPOINT, PATIENT MAY BE DISCHARGED TODAY, HE WILL SIGN OFF PATIENT IS ASYMPTOMATIC WITH HIS AFLUTTER IN 120'S.
--- NOTE | 2019-08-13 09:14 | NUR ---
CALLED DR. MANRIQUE TO UPDATE ON DR. CABRAL'S VISIT
--- NOTE | 2019-08-13 12:00 | NUR ---
MIDSHIFT SUMMARY PT WAS "TIRED" THIS AM R/T NOT MUCH SLEEP X3 WEEKS. PT NAPS OFF AND ON ALL MORNING. PT A&OX4, PLEASANT, DENIES PAIN, CHEST PRESSURE, TIGHTNESS. TELE IN PLACE AND PT CONTINUES WITH AFLUTTER. LUNGS CTA, RM AIR. BOWEL SOUNDS PRESENT. PT REMAINS AT BEDSIDE. PT AWARE OF DISCHARGE TODAY AND EDUCATION STARTED. PT WILL BE DISCHARGED TO HOME. PT HAS GOOD APPETITE, EATS 100% OF MEALS. PT HAS MANY FAMILY MEMBERS VISITING THIS SHIFT. PT SKIN INTACT EXCEPT RED AREA TO RT THIGH "HIVES", RED AREA TO LT AC, AND NEPHRO TUBES TO BILAT FLANKS WITH URINE LEG BAGS ATTACHED. URINE CLEAR YELLOW WITH OUTPUT TO LT SLIGHTLY MORE THAN RIGHT. BED REMAINS LOW POSITION, CALL LIGHT IN REACH, AND WILL CONTINUE TO MONITOR UNTIL DISCHARGE HOME TODAY.
[2019-08-13] MEDS ORDERED: METO50ER PO (13:51)
--- NOTE | 2019-08-13 14:29 | NUR ---
DISCHARGE INSTRUCTIONS GIVEN AND ACKNOWLEDGED. POWER GLIDE RIGHT UPPER ARM DC'D WNL. NEPHROSTOMY BAGS EMPTIED
[2019-08-14] MEDS ORDERED: Levaquin750 MG (16:05)
[2019-08-14] MEDS ORDERED: AFLURIA QU IM (16:06)
[2019-08-14] MEDS ORDERED: TOPROL XL50 MG PO (16:06)
== END 2019-08-13 14:33 | disposition home or self-care (01) | DRG 309 ==
LOC: ER 03:25 → PCU 03:26
PROVIDERS: Emergency Medicine; Internal Medicine; Internal Medicine Cardiovascular Disease; Pharmacist; ADMIT Family Medicine
DX: I48.92 Unspecified atrial flutter (principal); T83.512A Infection and inflammatory reaction due to nephrostomy catheter, initial encounter; D68.51 Activated protein C resistance; E87.1 Hypo-osmolality and hyponatremia; C78.7 Secondary malignant neoplasm of liver and intrahepatic bile duct; C78.00 Secondary malignant neoplasm of unspecified lung; N39.0 Urinary tract infection, site not specified; C67.9 Malignant neoplasm of bladder, unspecified; D47.3 Essential (hemorrhagic) thrombocythemia; Z86.73 Personal history of transient ischemic attack (TIA), and cerebral infarction without residual deficits; I71.2 Thoracic aortic aneurysm, without rupture; D50.9 Iron deficiency anemia, unspecified; B96.5 Pseudomonas (aeruginosa) (mallei) (pseudomallei) as the cause of diseases classified elsewhere; B95.2 Enterococcus as the cause of diseases classified elsewhere
CPT/HCPCS: 36415; 80048; 80053; 80162; 80202; 81001; 83605; 83735; 84100; 84443; 85025; 87040; 87077; 87086; 87186; 93005; 93010; 93306; 96365; 96366; 96367; 96372; 96375; 96376; 99285-25; A9270; C1751; G0378; J1160; J1200; J1650; J1956; J2405; J3370; J7030

== ENCOUNTER 2019-08-14 14:20 | Emergency (ER) | payer MEDICARE, OTHER ==
[~2019-08-14] VITALS: Ht 188 cm; Wt 104.3 kg
[~2019-08-14 14:20] MED LIST changes: +CARVEDILOL6.25 MG PO; +ENOXAPARIN150 MG/1 M SC; +LEVSOD50 PO; +METO50ER PO; +OXYC10TA19; +ZOFRAN8 MG PO
[2019-08-14 15:10] LABS: BASOPHILS PERCENT AUTO 1 % (0-2); EOSINOPHILS ABSOLUTE AUTO 0.21 K/mm3 (0.00-0.68); EOSINOPHILS PERCENT AUTO 2 % (0-6); Hematocrit 37.5 % (37.0-53.0); Hemoglobin 12.1 g/dL (13.5-17.5); IMMATURE GRAN ABSOLUTE AUTO 0.07 K/mm3 (0.00-0.10); IMMATURE GRAN PERCENT AUTO 1 % (0-1); LYMPHOCYTES ABSOLUTE AUTO 1.24 K/mm3 (0.84-5.20); LYMPHOCYTES PERCENT AUTO 13 % (21-46); MONOCYTES ABSOLUTE AUTO 1.26 K/mm3 (0.16-1.47); MONOCYTES PERCENT AUTO 14 % (4-13); Mean Corpuscular HGB 31.2 pg (26.0-34.0); Mean Corpuscular HGB Conc 32.3 g/dL (31.5-36.5); Mean Platelet Volume 8.3 fL (9.1-12.4); NEUTROPHILS ABSOLUTE AUTO 6.41 K/mm3 (1.96-9.15); NEUTROPHILS PERCENT AUTO 69 % (41-73); Platelet Count 396 K/mm3 (150-400); RDW Coefficient Variation 13.3 % (11.7-14.2); RDW Standard Deviation 47.4 fL (35.1-46.3); Red Blood Cell Count 3.88 M/mm3 (4.30-5.90); White Blood Cell Count 9.29 K/mm3 (4.00-11.30)
[2019-08-14 15:11] LABS: Mean Corpuscular Volume 97 fL (80-100)
[2019-08-14 15:19] LABS: Source, Urine Urostomy Bag
[2019-08-14 15:23] LABS: Appearance, Urine Hazy (Clear); Bilirubin, Urine Neg (Neg); Blood, Urine 5+ (Neg); Color, Urine Yellow (P-Yellow); Glucose Qualitative, Urine Neg (Neg); Ketones, Urine Neg (Neg); Leukocyte Esterase, Urine 3+ (Neg); Nitrite, Urine Pos (Neg); Protein, Urine 3+ (Neg); Urobilinogen, Urine NORM (Normal)
[2019-08-14 15:27] LABS: Source, Urine Urostomy Bag
[2019-08-14 15:32] LABS: Appearance, Urine Hazy (Clear); Bilirubin, Urine Neg (Neg); Blood, Urine 3+ (Neg); Color, Urine Yellow (P-Yellow); Glucose Qualitative, Urine Neg (Neg); Ketones, Urine Neg (Neg); Leukocyte Esterase, Urine 3+ (Neg); Nitrite, Urine Neg (Neg); Protein, Urine 3+ (Neg); Specific Gravity, Urine 1.015 (1.003-1.022); Urobilinogen, Urine NORM (Normal); pH, Urine 6.5 (5.0-8.0)
[2019-08-14 15:35] LABS: Red Blood Cells, Urine 50-100 /hpf (0-2)
[2019-08-14 15:36] LABS: Bacteria Mod /hpf; Squamous Epithelial Cells Not Seen /hpf (Few)
[2019-08-14 15:36] LABS: Alanine Aminotransfer (ALT/SGP 44 U/L (12-78); Albumin, Blood 3.1 g/dL (3.4-5.0); Albumin/Globulin Ratio 0.7 (0.8-1.8); Alk Phos 167 U/L (50-136); Anion Gap 6 mmol/L (6-16); Aspartate Aminotrans (AST/SGOT 42 U/L (12-37); Bilirubin, Total 0.2 mg/dL (0.1-1.0); Blood Urea Nitrogen 19 mg/dL (8-24); Bun/Creatinine Ratio 19.9 (12.0-20.0); CO2, Blood 24 mmol/L (21-32); Calcium, Blood 8.8 mg/dL (8.5-10.1); Chloride, Blood 98 mmol/L (98-108); Creatinine, Blood 0.96 mg/dL (0.60-1.20); Globulin, Blood 4.5 g/dL (2.2-4.0); Glomerular Filtration Rate >60 (60-); Glucose, Blood 104 mg/dL (70-99); Potassium, Blood 4.9 mmol/L (3.5-5.5); Sodium, Blood 128 mmol/L (136-145); Total Protein, Blood 7.6 g/dL (6.4-8.2); Troponin I <0.015 ng/mL (0.000-0.040)
[2019-08-14 15:49] LABS: Bacteria Mod /hpf; Squamous Epithelial Cells Not Seen /hpf (Few)
[2019-08-14] MEDS ORDERED: Levaquin750 MG (16:05)
[2019-08-14] MEDS ORDERED: TOPROL XL50 MG PO (16:06)
[2019-08-14] MEDS ORDERED: AFLURIA QU IM (16:06)
== END 2019-08-14 16:13 | disposition home or self-care (01) ==
LOC: ER 14:20
PROVIDERS: Emergency Medicine; Physician Assistant
DX: Z43.6 Encounter for attention to other artificial openings of urinary tract (principal); N39.0 Urinary tract infection, site not specified; I48.92 Unspecified atrial flutter; Z86.73 Personal history of transient ischemic attack (TIA), and cerebral infarction without residual deficits; Z87.891 Personal history of nicotine dependence
CPT/HCPCS: 36415; 80053; 81001; 84484; 85025; 87077; 87086; 87186; 93005; 93010; 99283-25

== ENCOUNTER 2019-08-19 13:18 | Inpatient (IN) | payer MEDICARE, OTHER ==
[~2019-08-19] VITALS: Ht 188 cm; Wt 102.6 kg
[~2019-08-19 13:18] MED LIST changes: +AFLURIA QU IM; +Levaquin750 MG; +TOPROL XL50 MG PO
[2019-08-19 13:54] LABS: BASOPHILS ABSOLUTE AUTO 0.08 K/mm3 (0.00-0.23); BASOPHILS PERCENT AUTO 1 % (0-2); EOSINOPHILS ABSOLUTE AUTO 0.26 K/mm3 (0.00-0.68); EOSINOPHILS PERCENT AUTO 3 % (0-6); IMMATURE GRAN ABSOLUTE AUTO 0.04 K/mm3 (0.00-0.10); IMMATURE GRAN PERCENT AUTO 1 % (0-1); LYMPHOCYTES ABSOLUTE AUTO 1.21 K/mm3 (0.84-5.20); LYMPHOCYTES PERCENT AUTO 15 % (21-46); MONOCYTES ABSOLUTE AUTO 0.82 K/mm3 (0.16-1.47); MONOCYTES PERCENT AUTO 10 % (4-13); Mean Corpuscular HGB 30.8 pg (26.0-34.0); Mean Corpuscular HGB Conc 32.5 g/dL (31.5-36.5); Mean Corpuscular Volume 95 fL (80-100); Mean Platelet Volume 7.8 fL (9.1-12.4); NEUTROPHILS ABSOLUTE AUTO 5.91 K/mm3 (1.96-9.15); NEUTROPHILS PERCENT AUTO 71 % (41-73); Platelet Count 419 K/mm3 (150-400); RDW Coefficient Variation 13.6 % (11.7-14.2); RDW Standard Deviation 47.1 fL (35.1-46.3); Red Blood Cell Count 4.22 M/mm3 (4.30-5.90); White Blood Cell Count 8.32 K/mm3 (4.00-11.30)
[2019-08-19 14:16] LABS: Alanine Aminotransfer (ALT/SGP 63 U/L (12-78); Albumin, Blood 3.4 g/dL (3.4-5.0); Albumin/Globulin Ratio 0.8 (0.8-1.8); Alk Phos 182 U/L (50-136); Anion Gap 8 mmol/L (6-16); Aspartate Aminotrans (AST/SGOT 71 U/L (12-37); Bilirubin, Total 0.4 mg/dL (0.1-1.0); Blood Urea Nitrogen 12 mg/dL (8-24); Bun/Creatinine Ratio 13.6 (12.0-20.0); CO2, Blood 26 mmol/L (21-32); Calcium, Blood 9.1 mg/dL (8.5-10.1); Chloride, Blood 96 mmol/L (98-108); Creatinine, Blood 0.88 mg/dL (0.60-1.20); Globulin, Blood 4.5 g/dL (2.2-4.0); Glomerular Filtration Rate >60 (60-); Glucose, Blood 99 mg/dL (70-99); Potassium, Blood 4.5 mmol/L (3.5-5.5); Sodium, Blood 130 mmol/L (136-145); Total Protein, Blood 7.9 g/dL (6.4-8.2); Troponin I <0.015 ng/mL (0.000-0.040)
[2019-08-19 14:38] LABS: Digoxin (Lanoxin) 0.13 ug/mL (0.80-2.00)
[2019-08-19] MEDS ORDERED: METO50ER PO (14:46)
[2019-08-19] MEDS ORDERED: CARVEDILOL6.25 MG PO (14:47)
[2019-08-19] MEDS ORDERED: OXYC10TA19 PO (14:47)
[2019-08-19] MEDS ORDERED: TAMSULOSIN HCL0.4 M1 PO (14:48)
[2019-08-19] MEDS ORDERED: WARF5 PO ×2 (14:49→14:53)
[2019-08-19 15:04] LABS: International Normalized Ratio 0.99; Prothrombin Time Results 10.5 Sec (9.7-11.5)
[2019-08-19] MEDS ORDERED: ONDA4ODT MM (17:45)
[2019-08-19 21:09] LABS: Source, Urine Urostomy Bag
[2019-08-19 21:17] LABS: Source, Urine Urostomy Bag
[2019-08-19 21:22] LABS: Bilirubin, Urine Neg (Neg); Blood, Urine 2+ (Neg); Glucose Qualitative, Urine Neg (Neg); Ketones, Urine Neg (Neg); Leukocyte Esterase, Urine Neg (Neg); Nitrite, Urine Neg (Neg); Protein, Urine Neg (Neg); Specific Gravity, Urine 1.005 (1.003-1.022); Urobilinogen, Urine NORM (Normal)
[2019-08-19 21:22] LABS: Bilirubin, Urine Neg (Neg); Blood, Urine 5+ (Neg); Glucose Qualitative, Urine Neg (Neg); Ketones, Urine Neg (Neg); Leukocyte Esterase, Urine 1+ (Neg); Nitrite, Urine Neg (Neg); Protein, Urine 1+ (Neg); Urobilinogen, Urine NORM (Normal)
[2019-08-19 21:45] LABS: Appearance, Urine Clear (Clear); Color, Urine Yellow (P-Yellow)
[2019-08-19 21:47] LABS: Bacteria Rare /hpf; Red Blood Cells, Urine 0-2 /hpf (0-2); Squamous Epithelial Cells Not Seen /hpf (Few); White Blood Cells, Urine 0-2 /hpf (0-5)
[2019-08-19 21:48] LABS: Appearance, Urine Clear (Clear); Color, Urine Pale Yellow (P-Yellow)
[2019-08-19 21:50] LABS: Red Blood Cells, Urine Rare /hpf (0-2); Squamous Epithelial Cells Not Seen /hpf (Few); White Blood Cells, Urine 0-2 /hpf (0-5)
[2019-08-19 21:51] LABS: Bacteria Not Seen /hpf
[2019-08-20 04:12] LABS: Hematocrit 38.6 % (37.0-53.0); Hemoglobin 12.4 g/dL (13.5-17.5); Mean Corpuscular HGB 30.5 pg (26.0-34.0); Mean Corpuscular HGB Conc 32.1 g/dL (31.5-36.5); Mean Corpuscular Volume 95 fL (80-100); Mean Platelet Volume 7.8 fL (9.1-12.4); Platelet Count 337 K/mm3 (150-400); RDW Coefficient Variation 13.4 % (11.7-14.2); RDW Standard Deviation 46.7 fL (35.1-46.3); Red Blood Cell Count 4.07 M/mm3 (4.30-5.90); White Blood Cell Count 7.88 K/mm3 (4.00-11.30)
[2019-08-20 04:36] LABS: Anion Gap 7 mmol/L (6-16); Blood Urea Nitrogen 12 mg/dL (8-24); Bun/Creatinine Ratio 12.7 (12.0-20.0); CO2, Blood 28 mmol/L (21-32); Calcium, Blood 8.8 mg/dL (8.5-10.1); Chloride, Blood 97 mmol/L (98-108); Creatinine, Blood 0.94 mg/dL (0.60-1.20); Glomerular Filtration Rate >60 (60-); Glucose, Blood 92 mg/dL (70-99); Potassium, Blood 4.6 mmol/L (3.5-5.5); Sodium, Blood 132 mmol/L (136-145)
[2019-08-20 04:50] LABS: Digoxin (Lanoxin) 0.64 ug/mL (0.80-2.00)
[2019-08-20] MEDS ORDERED: LOSARTAN POTASS50 MG PO (11:31)
[2019-08-20 12:03] LABS: International Normalized Ratio 1.41; Prothrombin Time Results 14.5 Sec (9.7-11.5)
[2019-08-21 04:25] LABS: International Normalized Ratio 1.66; Prothrombin Time Results 16.8 Sec (9.7-11.5)
[2019-08-21 04:45] LABS: Anion Gap 8 mmol/L (6-16); Blood Urea Nitrogen 15 mg/dL (8-24); Bun/Creatinine Ratio 18.3 (12.0-20.0); CO2, Blood 25 mmol/L (21-32); Calcium, Blood 8.8 mg/dL (8.5-10.1); Chloride, Blood 96 mmol/L (98-108); Creatinine, Blood 0.82 mg/dL (0.60-1.20); Digoxin (Lanoxin) 0.52 ug/mL (0.80-2.00); Glomerular Filtration Rate >60 (60-); Glucose, Blood 94 mg/dL (70-99); Potassium, Blood 4.6 mmol/L (3.5-5.5); Sodium, Blood 129 mmol/L (136-145)
[2019-08-22 04:10] LABS: BASOPHILS ABSOLUTE AUTO 0.09 K/mm3 (0.00-0.23); BASOPHILS PERCENT AUTO 1 % (0-2); EOSINOPHILS ABSOLUTE AUTO 0.29 K/mm3 (0.00-0.68); EOSINOPHILS PERCENT AUTO 4 % (0-6); Hematocrit 37.4 % (37.0-53.0); Hemoglobin 12.3 g/dL (13.5-17.5); IMMATURE GRAN ABSOLUTE AUTO 0.02 K/mm3 (0.00-0.10); IMMATURE GRAN PERCENT AUTO 0 % (0-1); LYMPHOCYTES ABSOLUTE AUTO 1.22 K/mm3 (0.84-5.20); LYMPHOCYTES PERCENT AUTO 15 % (21-46); MONOCYTES PERCENT AUTO 10 % (4-13); Mean Corpuscular HGB 30.5 pg (26.0-34.0); Mean Corpuscular HGB Conc 32.9 g/dL (31.5-36.5); Mean Corpuscular Volume 93 fL (80-100); NEUTROPHILS ABSOLUTE AUTO 5.58 K/mm3 (1.96-9.15); NEUTROPHILS PERCENT AUTO 70 % (41-73); Platelet Count 311 K/mm3 (150-400); RDW Coefficient Variation 13.4 % (11.7-14.2); Red Blood Cell Count 4.03 M/mm3 (4.30-5.90)
[2019-08-22 04:23] LABS: International Normalized Ratio 2.01
[2019-08-22 04:30] LABS: Albumin, Blood 3.2 g/dL (3.4-5.0); Anion Gap 7 mmol/L (6-16); Blood Urea Nitrogen 16 mg/dL (8-24); CO2, Blood 25 mmol/L (21-32); Calcium, Blood 8.8 mg/dL (8.5-10.1); Chloride, Blood 96 mmol/L (98-108); Glomerular Filtration Rate >60 (60-); Glucose, Blood 90 mg/dL (70-99); Phosphorus, Blood 3.8 mg/dL (2.5-4.9); Potassium, Blood 4.4 mmol/L (3.5-5.5); Sodium, Blood 128 mmol/L (136-145)
[2019-08-23 04:02] LABS: International Normalized Ratio 3.23; Prothrombin Time Results 30.8 Sec (9.7-11.5)
[2019-08-23 04:12] LABS: Anion Gap 7 mmol/L (6-16); Blood Urea Nitrogen 15 mg/dL (8-24); Bun/Creatinine Ratio 19.4 (12.0-20.0); CO2, Blood 25 mmol/L (21-32); Calcium, Blood 8.7 mg/dL (8.5-10.1); Chloride, Blood 97 mmol/L (98-108); Creatinine, Blood 0.77 mg/dL (0.60-1.20); Glomerular Filtration Rate >60 (60-); Glucose, Blood 86 mg/dL (70-99); Potassium, Blood 4.6 mmol/L (3.5-5.5); Sodium, Blood 129 mmol/L (136-145)
[2019-08-23 04:22] LABS: Digoxin (Lanoxin) 0.46 ug/mL (0.80-2.00)
[2019-08-24 04:08] LABS: International Normalized Ratio 2.45; Prothrombin Time Results 23.9 Sec (9.7-11.5)
[2019-08-24] MEDS ORDERED: DIGOX250 MCG PO (11:13)
[2019-08-24] MEDS ORDERED: DOCUSATE SODIU1 EACH PO (11:19)
[2019-08-24] MEDS ORDERED: MELATONIN PO (11:20)
[2019-08-24] MEDS ORDERED: TAMS.4ER PO (11:21)
[2019-08-24] MEDS ORDERED: VERA240ER PO (11:22)
[2019-08-24] MEDS ORDERED: WARF10 PO (11:25)
== END 2019-08-24 11:58 | disposition home or self-care (01) | DRG 309 ==
LOC: ER 13:18 → PCU 13:19
PROVIDERS: Internal Medicine; Physician Assistant; ADMIT Internal Medicine
DX: I48.92 Unspecified atrial flutter (principal); D68.51 Activated protein C resistance; C78.7 Secondary malignant neoplasm of liver and intrahepatic bile duct; E87.1 Hypo-osmolality and hyponatremia; I48.20 Chronic atrial fibrillation, unspecified; Z86.73 Personal history of transient ischemic attack (TIA), and cerebral infarction without residual deficits; Z87.891 Personal history of nicotine dependence; I71.2 Thoracic aortic aneurysm, without rupture; Z79.01 Long term (current) use of anticoagulants; F01.50 Vascular dementia, unspecified severity, without behavioral disturbance, psychotic disturbance, mood disturbance, and anxiety; C61 Malignant neoplasm of prostate; C67.9 Malignant neoplasm of bladder, unspecified; E11.9 Type 2 diabetes mellitus without complications; I10 Essential (primary) hypertension
CPT/HCPCS: 36415; 71045; 80048; 80053; 80069; 80162; 81001; 83880; 84484; 85025; 85027; 85610; 87086; 92960; 93005; 93010; 96365; 96372; 96375; 96376; 99285-25; G0378; J1160; J1650; J2405; J2704; J7030; J7040; J7050

== ENCOUNTER → 2019-09-01 | Outpatient (CLI) | payer MEDICARE, OTHER ==
[~2019-09-01] MED LIST changes: +DIGOX250 MCG PO; +DOCUSATE SODIU1 EACH PO; +LOSARTAN POTASS50 MG PO; +MELATONIN PO; +ONDA4ODT MM; +OXYC10TA19 PO; +TAMS.4ER PO; +TAMSULOSIN HCL0.4 M1 PO; +VERA240ER PO
== END | disposition home or self-care (01) ==
LOC: LAB SHORT 12:36 → LAB 12:36 → LAB FUT 09-01 11:30
DX: N39.0 Urinary tract infection, site not specified (principal)
CPT/HCPCS: 87077; 87086; 87186

== ENCOUNTER → 2019-09-27 | Outpatient (CLI) | payer MEDICARE, OTHER | END | disposition home or self-care (01) | LOC: LAB SHORT 12:30 → LAB 12:30 | DX: N10 Acute pyelonephritis (principal); R82.998 Other abnormal findings in urine | CPT/HCPCS: 87077; 87086; 87186 ==

== ENCOUNTER 2019-09-30 13:25 | Emergency (ER) | payer MEDICARE, OTHER ==
[~2019-09-30] VITALS: Ht 188 cm; Wt 102.5 kg
== END 2019-09-30 15:21 | disposition home or self-care (01) ==
LOC: ER 13:25
DX: R79.1 Abnormal coagulation profile (principal); Z80.52 Family history of malignant neoplasm of bladder; Z80.42 Family history of malignant neoplasm of prostate; Z88.0 Allergy status to penicillin; Z91.09 Other allergy status, other than to drugs and biological substances; Z91.02 Food additives allergy status; Z88.8 Allergy status to other drugs, medicaments and biological substances; Z79.01 Long term (current) use of anticoagulants; Z79.899 Other long term (current) drug therapy; Z86.73 Personal history of transient ischemic attack (TIA), and cerebral infarction without residual deficits; Z87.891 Personal history of nicotine dependence
CPT/HCPCS: 36415; 85610; 99283

== ENCOUNTER 2019-10-12 07:50 | Day surgery (SDC) | payer MEDICARE, OTHER ==
[~2019-10-12] VITALS: Ht 188 cm; Wt 102.0 kg
[2019-10-12] MEDS ORDERED: ENOX40I SC (08:17)
[2019-10-12] MEDS ORDERED: WARF10 PO (10:39)
--- NOTE | 2019-10-12 11:21 | NUR ---
DISCHARGE PT AMBULATED TO RESTROOM USING WALKER WITH RN A STAND BY ASSIST. PT WAS ABLE TO URINATE IN THE TOILET WITHOUT ANY DIFFICULTIES OR PAIN REPORTED. THERE WAS SOME BLOOD NOTED DUE TO POST BILATERAL URETERAL STENT PLACEMENT. PT WAS ABLE TO DRESS SELF. PT AND STATE THEIR UNDERSTANDING OF DISCHARGE AND CARE SITE INSTRUCTIONS AND BOTH DENY ANY QUESTIONS OR CONCERNS UPON DISCHARGE. PT AND STATE THEY WILL ALSO FOLLOW UP WITH COUMADIN CLINIC TO "MAKE SURE" PT IS BRIDGED PROPERLY DUE TO HIS FACTOR 5 DIAGNOSIS AND HX WITH BLOOD CLOTS. IV WAS DCD WITH CATH INTACT. VSS. PT TAKEN BY WC BY TO FRONT ENTERENCE.
== END 2019-10-12 11:15 | disposition home or self-care (01) ==
LOC: MHTC 07:50
DX: Z46.6 Encounter for fitting and adjustment of urinary device (principal); C61 Malignant neoplasm of prostate; C67.9 Malignant neoplasm of bladder, unspecified; N13.30 Unspecified hydronephrosis; I10 Essential (primary) hypertension; E11.9 Type 2 diabetes mellitus without complications; D68.51 Activated protein C resistance; Z86.73 Personal history of transient ischemic attack (TIA), and cerebral infarction without residual deficits; Z79.01 Long term (current) use of anticoagulants; Z87.891 Personal history of nicotine dependence; Z88.0 Allergy status to penicillin; Z88.8 Allergy status to other drugs, medicaments and biological substances; Z88.6 Allergy status to analgesic agent; Z91.041 Radiographic dye allergy status; Z91.018 Allergy to other foods
CPT/HCPCS: 50695; 99152; 99153; C1729; C1769; C1887; C2617; J1200; J1720; J2250; J3010; J3490; J7030; J7040; Q9967

== ENCOUNTER 2019-10-15 10:40 | Emergency (ER) | payer MEDICARE, OTHER ==
[~2019-10-15] VITALS: Ht 188 cm; Wt 101.2 kg
[~2019-10-15 10:40] MED LIST changes: +ENOX40I SC
[2019-10-15 11:21] LABS: BASOPHILS PERCENT AUTO 1 % (0-2); EOSINOPHILS ABSOLUTE AUTO 0.18 K/mm3 (0.00-0.68); EOSINOPHILS PERCENT AUTO 1 % (0-6); Hematocrit 35.4 % (37.0-53.0); Hemoglobin 11.7 g/dL (13.5-17.5); IMMATURE GRAN ABSOLUTE AUTO 0.12 K/mm3 (0.00-0.10); IMMATURE GRAN PERCENT AUTO 1 % (0-1); LYMPHOCYTES ABSOLUTE AUTO 0.67 K/mm3 (0.84-5.20); LYMPHOCYTES PERCENT AUTO 4 % (21-46); MONOCYTES PERCENT AUTO 8 % (4-13); Mean Corpuscular HGB 30.5 pg (26.0-34.0); Mean Corpuscular HGB Conc 33.1 g/dL (31.5-36.5); Mean Platelet Volume 8.7 fL (9.1-12.4); NEUTROPHILS ABSOLUTE AUTO 12.98 K/mm3 (1.96-9.15); NEUTROPHILS PERCENT AUTO 85 % (41-73); Platelet Count 312 K/mm3 (150-400); RDW Coefficient Variation 15.5 % (11.7-14.2); RDW Standard Deviation 52.3 fL (35.1-46.3); Red Blood Cell Count 3.83 M/mm3 (4.30-5.90); White Blood Cell Count 15.25 K/mm3 (4.00-11.30)
[2019-10-15 11:25] LABS: Mean Corpuscular Volume 92 fL (80-100)
[2019-10-15 11:43] LABS: Alanine Aminotransfer (ALT/SGP 108 U/L (12-78); Albumin, Blood 2.9 g/dL (3.4-5.0); Albumin/Globulin Ratio 0.7 (0.8-1.8); Alk Phos 333 U/L (50-136); Anion Gap 8 mmol/L (6-16); Aspartate Aminotrans (AST/SGOT 192 U/L (12-37); Bilirubin, Total 0.8 mg/dL (0.1-1.0); Blood Urea Nitrogen 14 mg/dL (8-24); Bun/Creatinine Ratio 17.6 (12.0-20.0); CO2, Blood 24 mmol/L (21-32); Calcium, Blood 8.2 mg/dL (8.5-10.1); Chloride, Blood 94 mmol/L (98-108); Globulin, Blood 4.3 g/dL (2.2-4.0); Glomerular Filtration Rate >60 (60-); Glucose, Blood 98 mg/dL (70-99); Sodium, Blood 126 mmol/L (136-145); Total Protein, Blood 7.2 g/dL (6.4-8.2)
[2019-10-15 12:01] LABS: Digoxin (Lanoxin) 1.22 ug/mL (0.80-2.00)
[2019-10-15 12:13] LABS: International Normalized Ratio 2.71; Prothrombin Time Results 27.4 Sec (9.7-11.5)
[2019-10-15 13:49] LABS: Source, Urine Urostomy Bag
[2019-10-15 13:52] LABS: Bilirubin, Urine Neg (Neg); Blood, Urine 5+ (Neg); Glucose Qualitative, Urine Neg (Neg); Ketones, Urine 1+ (Neg); Leukocyte Esterase, Urine 3+ (Neg); Nitrite, Urine Pos (Neg); Protein, Urine 2+ (Neg); Urobilinogen, Urine NORM (Normal)
[2019-10-15 14:08] LABS: Appearance, Urine Hazy (Clear); Color, Urine Yellow (P-Yellow)
[2019-10-15 14:09] LABS: Bacteria Many /hpf; Red Blood Cells, Urine 25-50 /hpf (0-2); Squamous Epithelial Cells Not Seen /hpf (Few); White Blood Cells, Urine TNTC /hpf (0-5)
[2019-10-15] MEDS ORDERED: CEFD300 PO (14:42)
[2019-10-15] MEDS ORDERED: Miralax17 GM PO (14:42)
== END 2019-10-15 15:05 | disposition home or self-care (01) ==
LOC: ER 10:40
PROVIDERS: Emergency Medicine
DX: K59.00 Constipation, unspecified (principal); E87.8 Other disorders of electrolyte and fluid balance, not elsewhere classified; C67.9 Malignant neoplasm of bladder, unspecified; C78.02 Secondary malignant neoplasm of left lung; C78.01 Secondary malignant neoplasm of right lung; C79.51 Secondary malignant neoplasm of bone; C79.82 Secondary malignant neoplasm of genital organs; Z88.0 Allergy status to penicillin; Z88.8 Allergy status to other drugs, medicaments and biological substances; Z91.09 Other allergy status, other than to drugs and biological substances; Z91.02 Food additives allergy status; Z91.018 Allergy to other foods; Z79.899 Other long term (current) drug therapy; Z79.01 Long term (current) use of anticoagulants; Z86.73 Personal history of transient ischemic attack (TIA), and cerebral infarction without residual deficits; Z87.891 Personal history of nicotine dependence; Z96.0 Presence of urogenital implants; Z90.5 Acquired absence of kidney
CPT/HCPCS: 36415; 51798; 70450; 80053; 80162; 81001; 83690; 85025; 85610; 87077; 87086; 87186; 96360; 96361; 99284-25; J7030

== ENCOUNTER 2019-10-20 13:35 | Emergency (ER) | payer MEDICARE, OTHER ==
[~2019-10-20] VITALS: Ht 188 cm; Wt 101.6 kg
[~2019-10-20 13:35] MED LIST changes: +CEFD300 PO; +Miralax17 GM PO
[2019-10-20 14:31] LABS: BASOPHILS ABSOLUTE AUTO 0.08 K/mm3 (0.00-0.23); BASOPHILS PERCENT AUTO 1 % (0-2); EOSINOPHILS ABSOLUTE AUTO 0.14 K/mm3 (0.00-0.68); EOSINOPHILS PERCENT AUTO 1 % (0-6); Hematocrit 38.3 % (37.0-53.0); Hemoglobin 12.1 g/dL (13.5-17.5); IMMATURE GRAN ABSOLUTE AUTO 0.26 K/mm3 (0.00-0.10); IMMATURE GRAN PERCENT AUTO 2 % (0-1); LYMPHOCYTES ABSOLUTE AUTO 0.87 K/mm3 (0.84-5.20); LYMPHOCYTES PERCENT AUTO 6 % (21-46); MONOCYTES ABSOLUTE AUTO 1.16 K/mm3 (0.16-1.47); MONOCYTES PERCENT AUTO 8 % (4-13); Mean Corpuscular HGB 29.7 pg (26.0-34.0); Mean Corpuscular HGB Conc 31.6 g/dL (31.5-36.5); Mean Corpuscular Volume 94 fL (80-100); Mean Platelet Volume 8.3 fL (9.1-12.4); NEUTROPHILS ABSOLUTE AUTO 11.96 K/mm3 (1.96-9.15); NEUTROPHILS PERCENT AUTO 83 % (41-73); Platelet Count 343 K/mm3 (150-400); RDW Coefficient Variation 15.9 % (11.7-14.2); RDW Standard Deviation 54.6 fL (35.1-46.3); Red Blood Cell Count 4.07 M/mm3 (4.30-5.90); White Blood Cell Count 14.47 K/mm3 (4.00-11.30)
[2019-10-20 14:42] LABS: Alanine Aminotransfer (ALT/SGP 100 U/L (12-78); Albumin/Globulin Ratio 0.8 (0.8-1.8); Alk Phos 365 U/L (50-136); Anion Gap 8 mmol/L (6-16); Aspartate Aminotrans (AST/SGOT 183 U/L (12-37); Bilirubin, Total 0.8 mg/dL (0.1-1.0); Blood Urea Nitrogen 18 mg/dL (8-24); Bun/Creatinine Ratio 20.3 (12.0-20.0); CO2, Blood 22 mmol/L (21-32); Calcium, Blood 8.5 mg/dL (8.5-10.1); Chloride, Blood 95 mmol/L (98-108); Creatinine, Blood 0.89 mg/dL (0.60-1.20); Glomerular Filtration Rate >60 (60-); Glucose, Blood 101 mg/dL (70-99); Potassium, Blood 4.8 mmol/L (3.5-5.5); Sodium, Blood 125 mmol/L (136-145)
[2019-10-20 15:10] LABS: Troponin I <0.015 ng/mL (0.000-0.040)
[2019-10-20 15:17] LABS: Source, Urine Urostomy Bag
[2019-10-20 15:17] LABS: Source, Urine Urostomy Bag
[2019-10-20 15:22] LABS: Bilirubin, Urine Neg (Neg); Blood, Urine 5+ (Neg); Glucose Qualitative, Urine Neg (Neg); Ketones, Urine 1+ (Neg); Leukocyte Esterase, Urine 3+ (Neg); Nitrite, Urine Neg (Neg); Protein, Urine 3+ (Neg); Urobilinogen, Urine 1+ (Normal)
[2019-10-20 15:23] LABS: Bilirubin, Urine Neg (Neg); Blood, Urine 5+ (Neg); Glucose Qualitative, Urine Neg (Neg); Ketones, Urine 1+ (Neg); Leukocyte Esterase, Urine 3+ (Neg); Nitrite, Urine Neg (Neg); Protein, Urine 3+ (Neg); Specific Gravity, Urine 1.015 (1.003-1.022); Urobilinogen, Urine 2+ (Normal)
[2019-10-20 15:30] LABS: Digoxin (Lanoxin) 1.04 ug/mL (0.80-2.00)
[2019-10-20 15:32] LABS: Prothrombin Time Results 76.5 Sec (9.7-11.5)
[2019-10-20 15:34] LABS: International Normalized Ratio 8.05
[2019-10-20 15:47] LABS: Appearance, Urine Cloudy (Clear); Color, Urine Amber (P-Yellow)
[2019-10-20 15:50] LABS: Bacteria Many /hpf; Red Blood Cells, Urine 50-100 /hpf (0-2); Squamous Epithelial Cells Not Seen /hpf (Few); White Blood Cells, Urine 50-100 /hpf (0-5)
[2019-10-20 15:51] LABS: Amorphous Light (0-Heavy)
[2019-10-20 15:52] LABS: Appearance, Urine Cloudy (Clear); Color, Urine Amber (P-Yellow)
[2019-10-20 15:53] LABS: Red Blood Cells, Urine TNTC /hpf (0-2); White Blood Cells, Urine 25-50 /hpf (0-5)
[2019-10-20 15:54] LABS: Bacteria Many /hpf; Squamous Epithelial Cells Not Seen /hpf (Few)
== END 2019-10-20 17:30 | disposition home or self-care (01) ==
LOC: ER 13:35
PROVIDERS: Emergency Medicine; Physician Assistant
DX: G45.9 Transient cerebral ischemic attack, unspecified (principal); C67.9 Malignant neoplasm of bladder, unspecified; C78.7 Secondary malignant neoplasm of liver and intrahepatic bile duct; Z88.0 Allergy status to penicillin; Z79.899 Other long term (current) drug therapy; Z87.891 Personal history of nicotine dependence
CPT/HCPCS: 36415; 70450; 70496; 70498; 74176; 80053; 80162; 81001; 82947; 83690; 84484; 85025; 85610; 87077; 87086; 87186; 93005; 93010; 96361; 96374-59; 96375-59; 99285-25; J1200; J2930; J7030; Q9967

== ENCOUNTER 2019-10-27 10:17 | Observation (INO) | payer MEDICARE, OTHER ==
[~2019-10-27] VITALS: Ht 188 cm; Wt 105.7 kg
[2019-10-27 11:57] LABS: BASOPHILS ABSOLUTE AUTO 0.13 K/mm3 (0.00-0.23); BASOPHILS PERCENT AUTO 1 % (0-2); EOSINOPHILS ABSOLUTE AUTO 0.22 K/mm3 (0.00-0.68); EOSINOPHILS PERCENT AUTO 2 % (0-6); Hematocrit 39.4 % (37.0-53.0); Hemoglobin 12.6 g/dL (13.5-17.5); IMMATURE GRAN ABSOLUTE AUTO 0.23 K/mm3 (0.00-0.10); IMMATURE GRAN PERCENT AUTO 2 % (0-1); LYMPHOCYTES ABSOLUTE AUTO 0.69 K/mm3 (0.84-5.20); LYMPHOCYTES PERCENT AUTO 5 % (21-46); MONOCYTES ABSOLUTE AUTO 0.94 K/mm3 (0.16-1.47); MONOCYTES PERCENT AUTO 7 % (4-13); Mean Corpuscular HGB 30.9 pg (26.0-34.0); Mean Platelet Volume 9.3 fL (9.1-12.4); NEUTROPHILS ABSOLUTE AUTO 11.73 K/mm3 (1.96-9.15); NEUTROPHILS PERCENT AUTO 84 % (41-73); Platelet Count 436 K/mm3 (150-400); RDW Coefficient Variation 16.5 % (11.7-14.2); RDW Standard Deviation 59.3 fL (35.1-46.3); Red Blood Cell Count 4.08 M/mm3 (4.30-5.90); White Blood Cell Count 13.94 K/mm3 (4.00-11.30)
[2019-10-27 11:58] LABS: Mean Corpuscular Volume 97 fL (80-100)
[2019-10-27] MEDS ORDERED: OXYC10TA19 PO (12:08)
[2019-10-27] MEDS ORDERED: Carbamazepine200 MG PO (12:09)
[2019-10-27] MEDS ORDERED: LOSARTAN POTASS50 M1 PO (12:10)
[2019-10-27 12:29] LABS: Alanine Aminotransfer (ALT/SGP 73 U/L (12-78); Albumin, Blood 2.8 g/dL (3.4-5.0); Albumin/Globulin Ratio 0.6 (0.8-1.8); Alk Phos 394 U/L (50-136); Anion Gap 11 mmol/L (6-16); Aspartate Aminotrans (AST/SGOT 199 U/L (12-37); Bilirubin, Total 0.8 mg/dL (0.1-1.0); Blood Urea Nitrogen 13 mg/dL (8-24); Bun/Creatinine Ratio 13.9 (12.0-20.0); CO2, Blood 21 mmol/L (21-32); Calcium, Blood 8.6 mg/dL (8.5-10.1); Chloride, Blood 94 mmol/L (98-108); Creatinine, Blood 0.94 mg/dL (0.60-1.20); Globulin, Blood 4.9 g/dL (2.2-4.0); Glomerular Filtration Rate >60 (60-); Glucose, Blood 114 mg/dL (70-99); Potassium, Blood 5.6 mmol/L (3.5-5.5); Sodium, Blood 126 mmol/L (136-145); Total Protein, Blood 7.7 g/dL (6.4-8.2)
[2019-10-27 12:32] LABS: International Normalized Ratio No Calc
[2019-10-27 12:34] LABS: Prothrombin Time Results >90.0 Sec (9.7-11.5)
[2019-10-27] MEDS ORDERED: WARF10 PO (17:19)
[2019-10-27] MEDS ORDERED: Prednisone10 MG PO (19:43)
--- NOTE | 2019-10-28 04:07 | NUR ---
SHIFT SUMMARY PT HAS HAD NO ACUTE CHANGES THIS SHIFT, MEDICATED 1X FOR PAIN AT SHIFT START, DENIES PAIN AT THIS TIME, PT SLEPT 1ST HALF OF NIGHT BUT HAS BEEN UP WATCHING TV FOR LAST FEW HOURS; USES URINAL INDEP @ BEDSIDE, DID STAND W/ST BY ASSIST TO USE URINAL 1X (PT TOLERATED WELL), CALL LIGHT IN REACH, WILL CONT TO MONITOR UNTIL REPORT GIVEN TO NOC RN.
[2019-10-28 05:24] LABS: BASOPHILS ABSOLUTE AUTO 0.09 K/mm3 (0.00-0.23); BASOPHILS PERCENT AUTO 1 % (0-2); EOSINOPHILS ABSOLUTE AUTO 0.24 K/mm3 (0.00-0.68); EOSINOPHILS PERCENT AUTO 2 % (0-6); Hematocrit 37.2 % (37.0-53.0); Hemoglobin 11.8 g/dL (13.5-17.5); IMMATURE GRAN ABSOLUTE AUTO 0.16 K/mm3 (0.00-0.10); IMMATURE GRAN PERCENT AUTO 1 % (0-1); LYMPHOCYTES ABSOLUTE AUTO 1.24 K/mm3 (0.84-5.20); LYMPHOCYTES PERCENT AUTO 10 % (21-46); MONOCYTES PERCENT AUTO 8 % (4-13); Mean Corpuscular HGB 30.2 pg (26.0-34.0); Mean Corpuscular HGB Conc 31.7 g/dL (31.5-36.5); Mean Corpuscular Volume 95 fL (80-100); Mean Platelet Volume 8.3 fL (9.1-12.4); NEUTROPHILS PERCENT AUTO 79 % (41-73); Platelet Count 388 K/mm3 (150-400); RDW Coefficient Variation 16.5 % (11.7-14.2); RDW Standard Deviation 57.9 fL (35.1-46.3); Red Blood Cell Count 3.91 M/mm3 (4.30-5.90); White Blood Cell Count 12.93 K/mm3 (4.00-11.30)
[2019-10-28 05:43] LABS: International Normalized Ratio 2.11; Prothrombin Time Results 21.6 Sec (9.7-11.5)
[2019-10-28 05:53] LABS: Alanine Aminotransfer (ALT/SGP 65 U/L (12-78); Albumin, Blood 2.7 g/dL (3.4-5.0); Albumin/Globulin Ratio 0.6 (0.8-1.8); Alk Phos 337 U/L (50-136); Anion Gap 11 mmol/L (6-16); Aspartate Aminotrans (AST/SGOT 174 U/L (12-37); Blood Urea Nitrogen 13 mg/dL (8-24); Bun/Creatinine Ratio 14.3 (12.0-20.0); CO2, Blood 23 mmol/L (21-32); Calcium, Blood 8.4 mg/dL (8.5-10.1); Chloride, Blood 95 mmol/L (98-108); Creatinine, Blood 0.91 mg/dL (0.60-1.20); Globulin, Blood 4.3 g/dL (2.2-4.0); Glomerular Filtration Rate >60 (60-); Glucose, Blood 106 mg/dL (70-99); Magnesium, Blood 2.4 mg/dL (1.6-2.4); Potassium, Blood 4.5 mmol/L (3.5-5.5); Sodium, Blood 129 mmol/L (136-145)
--- NOTE | 2019-10-28 11:22 | NUR ---
SPOKE TO DR MANRIQUE- PT COAGS HAVE RETURNED TO NORMAL RANGE (ORDER FOR COUMADIN THIS EVENING). PER DR WALSH'S NOTE PT OK TO DISCHARGE ONCE COAGS ARE BACK TO NORMAL AND THEN PT TO COME IN FOR NEW NEPHROSTOMY PLACEMENT ON THURSDAY. SPOKE TO HOSPITALIST TO SEE IF RN SHOULD SPEAK TO DR WALSH TO SEE IF HE WANTS THE PT TO GO TODAY SINCE COAGS ARE BACK TO SAFE RANGE. CALLED DR WALSH ABOUT PT COAGS TO SEE IF HE WANTS TO DO THE PROCEDURE TODAY. DR WALSH STATES THE PROCEDURE NOT EMERGENT AT THIS TIME AND PT SHOULD STILL PLAN FOR THE PROCEDURE FOR THURSDAY INPATIENT OR OUTPATIENT. SPOKE TO DR MANRIQUE AND SHE IS AWARE. PT MAY DISCHARGE HOME TODAY WITH THE PLAN TO HAVE OUTPATIENT PROCEDURE ON THURSDAY.
--- NOTE | 2019-10-28 12:20 | NUR ---
Initial palliative care consult: Nimesh is a 68 year old with a history of metastatic bladder cancer, factor 5 leiden, UTIs, a-flutter, a-fib, CVA, vascular dementia, seizures and green felt filter in place. He had a supratherapeutic INR and needed to have a nephrostomy tube replaced. Requested to see Nimesh and his , Gabino, re: AD and POLST by nursing. Met with Nimesh and Gabino and answered questions re: different options of a limited code. Nimesh is considering only have defibrillation and doesn't think he wants to have chest compressions due to the green felt filter that could rupture in his chest. Explained to him that if he has no heart beat and required CPR that he was already . He states he needs to think about what he wants before he makes a decision. He was clear that he would not want to live on machines. He also stated and his concurred that if his quality of life with current immunotherapy declines or the immunotherapy is not successful that he would want to focus on comfort and consider hospice services. Answered questions related to POLST and AD. His stated that they have had conversations in the past and she knows that he would not want to live on life support. They would like to have the forms for POLST and AD to take home, but are not ready to fill them out today. Explained to him at this time he is a full code and that everything would be done at this time unless he changes his code status. He stated his understanding and said "I'll think about it." Gabino requested to speak with Darron RUDOLPH, prior to discharge this afternoon re: coupons for medications as Gabino stated that the lovenox was very expensive. LM for Darron to follow up with Nimesh and Gabino. Updated nursing. Gabino stated they will follow up with his oncologist or PCP to further discuss the POLST form. PC will remain available.
[2019-10-28] MEDS ORDERED: ENOXAPARIN100 MG/1 M SC (12:48)
--- NOTE | 2019-10-28 13:43 | NUR ---
DISCHARGE NOTE- PT WAS GIVEN VERBAL AND WRITTEN DISCHARGE INSTRUCTIONS AND ACKNOWLEDGED UNDERSTANDING OF THEM. PT HAS A PROCEDURE SCHEDULED FOR THURSDAY AND IS AWARE ARRIVAL TIME FOR CHECK IN IS 0930. IV DC'D PRIOR TO DISCHARGE. WC IS WAITING AT THE ENTRANCE TO THE ROOM. PT SPOUSE IS AWAITUNG COPING MACHINE ASSEMBLER FOR COUPONS FOR THE PHARMACY. PT MEDS WERE FAXED TO [facility] PER PT REQUEST. SPOUSE PRESENT FOR ALL DISCHARGE TEACHING.
--- NOTE | 2019-10-28 14:31 | NUR ---
RECIEVED A CALL FROM [facility] TO CLARIFY THE DOSE OF LOVENOX FOR PT. SPOKE TO DR MANRIQUE WHO HAD RN CALL OUR PHARMACY TO CALCULATE THE DOSE. DOSE CALCULATED TO BE 100MG SQ BID FILL QUANTITY 5 SYRINGES. SPOKE TO KERRIE CHERRY AT [facility] TO CLARIFY.
== END 2019-10-28 14:13 | disposition home or self-care (01) ==
LOC: ER 10:17 → MEDS 10:18
PROVIDERS: Physician Assistant; ADMIT Family Medicine
DX: T83.022A Displacement of nephrostomy catheter, initial encounter (principal); C67.9 Malignant neoplasm of bladder, unspecified; C79.51 Secondary malignant neoplasm of bone; D68.51 Activated protein C resistance; E87.6 Hypokalemia; E87.1 Hypo-osmolality and hyponatremia; R31.0 Gross hematuria; I48.0 Paroxysmal atrial fibrillation; G40.909 Epilepsy, unspecified, not intractable, without status epilepticus; I10 Essential (primary) hypertension; Z79.01 Long term (current) use of anticoagulants; Z87.891 Personal history of nicotine dependence; Z79.899 Other long term (current) drug therapy; Z88.0 Allergy status to penicillin; Z88.8 Allergy status to other drugs, medicaments and biological substances
CPT/HCPCS: 36415; 76770; 80053; 83735; 84484; 85025; 85610; 86850; 86900; 86901; 93005; 93010; 96374; 96375; 99152; 99153; 99285-25; A9270-GY; C1729; C1769; C1887; G0378; J0713; J1200; J1720; J2250; J3010; J7030; J7040; Q9967

== ENCOUNTER 2019-10-29 23:57 | Inpatient (IN) | payer MEDICARE ==
[~2019-10-29] VITALS: Ht 188 cm; Wt 106.9 kg
[~2019-10-29 23:57] MED LIST changes: +Carbamazepine200 MG PO; +ENOXAPARIN100 MG/1 M SC; +LOSARTAN POTASS50 M1 PO; +Prednisone10 MG PO
[2019-10-30 00:48] LABS: BASOPHILS ABSOLUTE AUTO 0.16 K/mm3 (0.00-0.23); BASOPHILS PERCENT AUTO 1 % (0-2); EOSINOPHILS ABSOLUTE AUTO 0.43 K/mm3 (0.00-0.68); EOSINOPHILS PERCENT AUTO 3 % (0-6); Hematocrit 34.2 % (37.0-53.0); Hemoglobin 11.1 g/dL (13.5-17.5); IMMATURE GRAN ABSOLUTE AUTO 0.25 K/mm3 (0.00-0.10); IMMATURE GRAN PERCENT AUTO 2 % (0-1); LYMPHOCYTES ABSOLUTE AUTO 1.32 K/mm3 (0.84-5.20); LYMPHOCYTES PERCENT AUTO 8 % (21-46); MONOCYTES ABSOLUTE AUTO 1.54 K/mm3 (0.16-1.47); MONOCYTES PERCENT AUTO 10 % (4-13); Mean Corpuscular HGB 30.9 pg (26.0-34.0); Mean Corpuscular HGB Conc 32.5 g/dL (31.5-36.5); Mean Corpuscular Volume 95 fL (80-100); Mean Platelet Volume 8.7 fL (9.1-12.4); NEUTROPHILS ABSOLUTE AUTO 11.96 K/mm3 (1.96-9.15); NEUTROPHILS PERCENT AUTO 77 % (41-73); Platelet Count 384 K/mm3 (150-400); RDW Coefficient Variation 16.5 % (11.7-14.2); RDW Standard Deviation 58.4 fL (35.1-46.3); Red Blood Cell Count 3.59 M/mm3 (4.30-5.90); White Blood Cell Count 15.66 K/mm3 (4.00-11.30)
[2019-10-30 01:00] LABS: Alanine Aminotransfer (ALT/SGP 68 U/L (12-78); Albumin, Blood 2.8 g/dL (3.4-5.0); Albumin/Globulin Ratio 0.7 (0.8-1.8); Alk Phos 369 U/L (50-136); Anion Gap 10 mmol/L (6-16); Aspartate Aminotrans (AST/SGOT 223 U/L (12-37); Bilirubin, Total 1.2 mg/dL (0.1-1.0); Blood Urea Nitrogen 18 mg/dL (8-24); Bun/Creatinine Ratio 19.4 (12.0-20.0); CO2, Blood 22 mmol/L (21-32); Calcium, Blood 8.8 mg/dL (8.5-10.1); Chloride, Blood 96 mmol/L (98-108); Creatinine, Blood 0.93 mg/dL (0.60-1.20); Globulin, Blood 4.3 g/dL (2.2-4.0); Glomerular Filtration Rate >60 (60-); Glucose, Blood 90 mg/dL (70-99); Sodium, Blood 128 mmol/L (136-145); Total Protein, Blood 7.1 g/dL (6.4-8.2)
[2019-10-30 01:06] LABS: International Normalized Ratio 1.2; Prothrombin Time Results 12.7 Sec (9.7-11.5)
[2019-10-30 01:07] LABS: Source, Urine Urostomy Bag
[2019-10-30 01:10] LABS: Appearance, Urine Bloody (Clear); Bilirubin, Urine Neg (Neg); Blood, Urine 4+ (Neg); Color, Urine Red (P-Yellow); Glucose Qualitative, Urine Neg (Neg); Ketones, Urine 1+ (Neg); Leukocyte Esterase, Urine Neg (Neg); Nitrite, Urine Neg (Neg); Protein, Urine 4+ (Neg); Specific Gravity, Urine 1.015 (1.003-1.022); Urobilinogen, Urine NORM (Normal)
[2019-10-30 01:17] LABS: Squamous Epithelial Cells Not Seen /hpf (Few); White Blood Cells, Urine TNTC /hpf (0-5)
[2019-10-30 01:18] LABS: Bacteria Not Seen /hpf
--- NOTE | 2019-10-30 06:08 | NUR ---
ARRIVAL TO UNIT. PT ARRIVED TO UNIT FROM ER VIA GURNEY. PT TRANSFERED TO BED WITH 2+ MODERATE ASSIST. PER FAMILY PT SLEEP WALKS AND IS VERY CONFUSED. PT WAS AA0X3 UPON ASSESSMENT BUT WAS REPEATING HIMSELF AND MAKING SOME NONSENSICAL STATEMENTS. BED ALARM IS ON AND CALL LIGHT IS IN REACH. UPON ASSESSMENT SANGUINOUS DRAINAGE IS LEAKING OUT OF PT'S PENIS. HE REPORTS THIS HAS BEEN HAPPENING FOR A WHILE TODAY. CLEANED PT UP, NEW UNDERWEAR IN PLACE. LEFT NEPHROSTOMY FULL OF DARK RED LIQUID. BANDAID OVER PREVIOUS R NEPHROSTOMY LOCATION IS INTACT WITH SMALL AMOUNT DRY SANGUINOUS DRAINAGE.
[2019-10-30 08:38] LABS: Source, Urine Catheter
[2019-10-30 08:49] LABS: Bilirubin, Urine Neg (Neg); Blood, Urine 5+ (Neg); Glucose Qualitative, Urine Neg (Neg); Ketones, Urine 1+ (Neg); Leukocyte Esterase, Urine Neg (Neg); Nitrite, Urine Neg (Neg); Protein, Urine 4+ (Neg); Specific Gravity, Urine 1.015 (1.003-1.022); Urobilinogen, Urine NORM (Normal); pH, Urine 6.5 (5.0-8.0)
[2019-10-30 09:09] LABS: Appearance, Urine Bloody (Clear); Color, Urine Red (P-Yellow)
[2019-10-30 09:14] LABS: Bacteria Few /hpf; Red Blood Cells, Urine TNTC /hpf (0-2); Squamous Epithelial Cells Not Seen /hpf (Few)
--- NOTE | 2019-10-30 10:21 | NUR ---
[address] WAY FULLER PLACED W/ CBI, LARGE AMOUNTS OF CLOTS DRAINED, DR. QUIGLEY AND DR. WALSH AWARE, PT IS SCHEDULED FOR RE- INSERTION OF R NEPHOROSTOMY TUBE TOMORROW AND IRRIGATION OF L NEPHROSTOMY TUBE PER DR. WALSH, PT MEDICATED FOR PAIN PRIOR TO PLACEMENT OF FULLER, REPORTS HAVING RELIEF OF BLADDER DISCOMFORT ONCE FULLER PLACED AND IRRIGATION STARTED, CONT. TO MONITOR FOR ANY CHANGES.
--- NOTE | 2019-10-30 13:04 | NUR ---
CBI DRAINING PALE PINK AT THIS TIME, PT DENIES ANY BLADDER DISCOMFORT AT THIS TIME, PT C/O DIZZINESS WHILE IN BED, SKIN CONTINUES TO BE PALE, BP 133/84, HR 90, DR. LOVETRATE NOTIFIED, ORDERED H+H AT 1400 TODAY, CONT. TO MONITOR FOR ANY CHANGES.
--- NOTE | 2019-10-30 14:20 | NUR ---
CBI NOTED STOPPED DRAINING, CLEAR PINK DRAINAGE NOTED IN BAG, IRRIGATED MANUALLY BUT UNABLE TO GET CATH TO DRAIN, CATH DC'D, NEW 3 WAY FULLER CATH 24FR. PLACED BY JESSE MAY, DRAINED DK RED DRAINAGE W/ CLOTS, CLEARS TO LIGHT CRANBERRY COLOR AFTER CBI TURNED BACK ON.
[2019-10-30 14:42] LABS: Hemoglobin 10.6 g/dL (13.5-17.5)
--- NOTE | 2019-10-30 17:33 | NUR ---
SUMMARY CBI CONT. TO DRAIN CRANBERRY COLORED DRAINAGE, MEDICATED FOR PAIN W/ 5 MG OXYCODONE PT IS SLIGHTLY DROWSY, FULLER HASN'T HAD TO BE MANUALLY IRRIGATED SINCE 24FR. FULLER PLACED, PT SLEPT MOST OF THE AFTERNOON, NPO AFTER MN, PLAN FOR NEPHROSTOMY PLACEMENT PROCEDURE TOMORROW, PT AND FAMILY AWARE OF PLAN, NO OTHER CHANGES THIS SHIFT.
--- NOTE | 2019-10-31 04:06 | NUR ---
SHIFT SUMMARY AA03 DURING SHIFT. SOME CONFUSION ABOUT LOCATION AND TIME. PT COOPERATIVE WITH CARE, ANSWERS QUESTIONS APPROPRIATLY. DENIES PAIN DURING SHFT. CBI GOING THROUGHOUT SHIFT, NO CLOTS SEEN IN BAG. PT HAS BEEN SLEEPING ALL SHIFT. NPO SINCE MIDNIGHT PER ORDERS FOR PLAN TO GO TO OR TODAY.
[2019-10-31 05:23] LABS: BASOPHILS PERCENT AUTO 1 % (0-2); EOSINOPHILS ABSOLUTE AUTO 0.46 K/mm3 (0.00-0.68); EOSINOPHILS PERCENT AUTO 4 % (0-6); Hematocrit 31.3 % (37.0-53.0); Hemoglobin 10.2 g/dL (13.5-17.5); IMMATURE GRAN ABSOLUTE AUTO 0.15 K/mm3 (0.00-0.10); IMMATURE GRAN PERCENT AUTO 1 % (0-1); LYMPHOCYTES ABSOLUTE AUTO 0.94 K/mm3 (0.84-5.20); LYMPHOCYTES PERCENT AUTO 8 % (21-46); MONOCYTES ABSOLUTE AUTO 1.37 K/mm3 (0.16-1.47); MONOCYTES PERCENT AUTO 11 % (4-13); Mean Corpuscular HGB 30.6 pg (26.0-34.0); Mean Corpuscular HGB Conc 32.6 g/dL (31.5-36.5); Mean Corpuscular Volume 94 fL (80-100); Mean Platelet Volume 8.8 fL (9.1-12.4); NEUTROPHILS ABSOLUTE AUTO 9.21 K/mm3 (1.96-9.15); NEUTROPHILS PERCENT AUTO 75 % (41-73); Platelet Count 374 K/mm3 (150-400); RDW Coefficient Variation 16.5 % (11.7-14.2); RDW Standard Deviation 56.7 fL (35.1-46.3); Red Blood Cell Count 3.33 M/mm3 (4.30-5.90); White Blood Cell Count 12.23 K/mm3 (4.00-11.30)
[2019-10-31 05:54] LABS: Alanine Aminotransfer (ALT/SGP 54 U/L (12-78); Albumin, Blood 2.4 g/dL (3.4-5.0); Albumin/Globulin Ratio 0.6 (0.8-1.8); Alk Phos 313 U/L (50-136); Anion Gap 9 mmol/L (6-16); Aspartate Aminotrans (AST/SGOT 154 U/L (12-37); Blood Urea Nitrogen 20 mg/dL (8-24); Bun/Creatinine Ratio 17.5 (12.0-20.0); CO2, Blood 23 mmol/L (21-32); Calcium, Blood 8.6 mg/dL (8.5-10.1); Chloride, Blood 95 mmol/L (98-108); Creatinine, Blood 1.14 mg/dL (0.60-1.20); Globulin, Blood 3.9 g/dL (2.2-4.0); Glomerular Filtration Rate >60 (60-); Glucose, Blood 83 mg/dL (70-99); Potassium, Blood 5.3 mmol/L (3.5-5.5); Sodium, Blood 127 mmol/L (136-145); Total Protein, Blood 6.3 g/dL (6.4-8.2)
--- NOTE | 2019-10-31 07:00 | NUR ---
recvd report from previous shift RN Esvin, pt sleeping in bed, bed rails up x 2, bed in lowest position, call light within reach, bed alarm on. continuous bladder irrigation running pink lemonade colored urine, no clots.
--- NOTE | 2019-10-31 10:15 | NUR ---
[facility] cathode builder RN here to transport pt via own bed for procedure
--- NOTE | 2019-10-31 13:48 | NUR ---
PT GAVE PERMISSION FOR CARE ON 10/31/19 FOR 11/01/19.
--- NOTE | 2019-10-31 15:32 | NUR ---
PT'S CALLED CONCERNED ABOUT BLOOD THINNERS BEING RESTARTED R/T PT'S FACTOR V. RECEIVED ORDERS FROM DR QUIGLEY TO RESTART LOVENOX TONIGHT. NOTIFIED PT'S OF THIS ORDER WELL HEAD CT TO BE PERFORMED TO RULE OUT BLEED R/T CHANGE OF MENTATION
--- NOTE | 2019-10-31 19:55 | NUR ---
shift summary: vss, no acute changes. Pt denies n/v, tolerating PO intake. pt rates pain at 5/10 in r sided nephrostomy, medicated per mar. continuous bladder irrigation DCd with cranberry color return to urine out of catheter, allowed to drain per MD orders, no clots visualized. Nephrostomies draining serosanguinous R side bright red, L side dark red with less output. pt appears to be a/o x 3, occasional mumbles but answers appropriately, bed alarm in place but pt is not attempting to exit bed. ultrasound guided placement of new R sided nephrostomy accomplished this shift. Lungs clear. pt appears pale which family says is his recent baseline r/t current disease process. pt will continut with labs to assess PTT per MD orders.
--- NOTE | 2019-11-01 03:50 | NUR ---
SHIFT SUMMARY: PT STABLE T/O SHIFT. RIGHT NEPHROSTOMY DRAINING SEROUS FLUID WITH TOTAL OF 150CC OUT. LEFT NEPHROSTOMY DRAINING SANGUINOUS/BLOODY WITH TOTAL OF 120CC OUT. FULLER DRAINING RED/CRANBERRY COLORED URINE W/O ANY VISIBLE CLOTS. PAIN MANAGED WITH 10MG OXY. PT A&O X4. FORGETFUL AT TIMES. MUMBLES WORDS AND IS DIFFICULT TO UNDERSTAND AT TIMES. BM X1 THIS SHIFT. VSS.
[2019-11-01 05:09] LABS: BASOPHILS PERCENT AUTO 1 % (0-2); EOSINOPHILS ABSOLUTE AUTO 0.32 K/mm3 (0.00-0.68); EOSINOPHILS PERCENT AUTO 2 % (0-6); Hematocrit 31.3 % (37.0-53.0); IMMATURE GRAN ABSOLUTE AUTO 0.21 K/mm3 (0.00-0.10); IMMATURE GRAN PERCENT AUTO 2 % (0-1); LYMPHOCYTES ABSOLUTE AUTO 1.07 K/mm3 (0.84-5.20); LYMPHOCYTES PERCENT AUTO 8 % (21-46); MONOCYTES PERCENT AUTO 10 % (4-13); Mean Corpuscular HGB 30.2 pg (26.0-34.0); Mean Corpuscular HGB Conc 31.9 g/dL (31.5-36.5); Mean Corpuscular Volume 95 fL (80-100); Mean Platelet Volume 8.6 fL (9.1-12.4); NEUTROPHILS ABSOLUTE AUTO 10.32 K/mm3 (1.96-9.15); NEUTROPHILS PERCENT AUTO 77 % (41-73); Platelet Count 350 K/mm3 (150-400); RDW Coefficient Variation 16.3 % (11.7-14.2); RDW Standard Deviation 56.8 fL (35.1-46.3); Red Blood Cell Count 3.31 M/mm3 (4.30-5.90); White Blood Cell Count 13.42 K/mm3 (4.00-11.30)
[2019-11-01 05:21] LABS: International Normalized Ratio 1.17; Prothrombin Time Results 12.4 Sec (9.7-11.5)
[2019-11-01 05:28] LABS: Alanine Aminotransfer (ALT/SGP 55 U/L (12-78); Albumin, Blood 2.4 g/dL (3.4-5.0); Albumin/Globulin Ratio 0.6 (0.8-1.8); Alk Phos 293 U/L (50-136); Anion Gap 9 mmol/L (6-16); Aspartate Aminotrans (AST/SGOT 181 U/L (12-37); Blood Urea Nitrogen 23 mg/dL (8-24); Bun/Creatinine Ratio 21.1 (12.0-20.0); CO2, Blood 23 mmol/L (21-32); Calcium, Blood 8.3 mg/dL (8.5-10.1); Chloride, Blood 94 mmol/L (98-108); Creatinine, Blood 1.09 mg/dL (0.60-1.20); Glomerular Filtration Rate >60 (60-); Glucose, Blood 81 mg/dL (70-99); Sodium, Blood 126 mmol/L (136-145); Total Protein, Blood 6.4 g/dL (6.4-8.2)
--- NOTE | 2019-11-01 16:45 | NUR ---
Patient is alert and oriented and agreed to care on 11/01/19.
--- NOTE | 2019-11-01 20:18 | NUR ---
SHIFT SUMMARY PT AxOX1-2, AT BEDSIDE. L NEPHROSTOMY TUBE DRAINING DK RED 125 MLS OUT, R SEROUS 200, FULLER 150 MLS DK RED OUT. PAIN MANAGED PER EMAR. ANDREEA PO, DENIES N&V. REPORT GIVEN TO YESY MOLINA.
--- NOTE | 2019-11-02 07:20 | NUR ---
SHIFT SUMMARY PT RESTED WELL T/O NIGHT. AAOX4. DISCOMFORT CONTROLLED WITH 10MG ROXICODONE Q4-5P. NO NAUSEA/EMESIS. BILATERAL NEPHROSTOMY WITH MODERATE AMOUNTS OF DARK TEA/RED DRAINAGE. FULLER DRAINING SMALL AMOUNT OF TEA COLORED URINE. X1 LARGE LOOSE BM THIS AM, ATTENDS IN PLACE. PT REPOSITIONED FOR COMFORT. TOLERATED SIPS WATER. PT RESTING AT THIS TIME WITH CALL LIGHT IN REACH. REPORT TO DAY SHIFT RN.
[2019-11-02 08:11] LABS: Hemoglobin 10.1 g/dL (13.5-17.5); Mean Corpuscular HGB 30.7 pg (26.0-34.0); Mean Corpuscular HGB Conc 32.6 g/dL (31.5-36.5); Mean Corpuscular Volume 94 fL (80-100); Mean Platelet Volume 8.4 fL (9.1-12.4); Platelet Count 346 K/mm3 (150-400); RDW Coefficient Variation 16.2 % (11.7-14.2); RDW Standard Deviation 55.9 fL (35.1-46.3); Red Blood Cell Count 3.29 M/mm3 (4.30-5.90); White Blood Cell Count 12.47 K/mm3 (4.00-11.30)
[2019-11-02 08:25] LABS: International Normalized Ratio 1.31; Prothrombin Time Results 13.8 Sec (9.7-11.5)
[2019-11-02 08:54] LABS: Albumin, Blood 2.5 g/dL (3.4-5.0); Anion Gap 7 mmol/L (6-16); Blood Urea Nitrogen 22 mg/dL (8-24); Bun/Creatinine Ratio 28.3 (12.0-20.0); CO2, Blood 23 mmol/L (21-32); Calcium, Blood 8.4 mg/dL (8.5-10.1); Carbamazepine 9.8 ug/mL (4.0-12.0); Chloride, Blood 95 mmol/L (98-108); Creatinine, Blood 0.78 mg/dL (0.60-1.20); Glomerular Filtration Rate >60 (60-); Glucose, Blood 96 mg/dL (70-99); Phosphorus, Blood 2.8 mg/dL (2.5-4.9); Potassium, Blood 4.8 mmol/L (3.5-5.5); Sodium, Blood 125 mmol/L (136-145)
--- NOTE | 2019-11-02 10:21 | NUR ---
CONTACTED BY PHYSICAL THERAPIST WHO IS CURRENTLY WORKING WITH PATIENT. PER THERAPY PATIENT HAS HAD 3 EPISODES WHILE HE IS PERFORMING EXCERCISED DURING WHICH HE HAS HAD TWITCHING OF HIS BICEPS AND LOWER EXTREMITIES AND DURING WHICH HE STOPS PERFORMING THE EXCERCISE HE IS CURRENTLY DOING. PER THERAPY PATIENT ALSO GAZES TO THE RIGHT AND HAS "GLAZED LOOK" PATIENT DOES RESPOND TO VERBAL STIMULI WHEN SPOKEN TO. RN TO ROOM AND OBSERVED SAME FINDINGS NOTED BY THERAPY. PATIENTS 3 EPISODES OCCURED DURING ACTIVITY BUT NO EPISODES HAVE BEEN NOTED WHILE PATIENT AT REST. CALL PLACED TO DR WEBSTER ASKING HER TO RETURN MY CALL TO DISCUSS THE ABOVE
--- NOTE | 2019-11-02 10:58 | NUR ---
SPOKE WITH DR WEBSTER REGARDING PATIENTS OBSERVED TWITCHING MOVEMENT AND GAZE TO RIGHT WHILE WORKING WITH THERAPY
--- NOTE | 2019-11-02 11:30 | NUR ---
SPOKE WITH PATIENTS WHO TELLS ME PATIENT IS HAVING MORE "TWITCHES " TODAY AND ALSO TELLS HER HE IS HAVING BLURRED VISION WHICH HAS BEEN PRESENT SINCE 10/29/19/
--- NOTE | 2019-11-02 16:03 | NUR ---
Pt visit this afternoon. Pt's Gabino tearful outside of Pt's room. Engaged in therapeutic listening and offered emotional support. Gabino reports decision has been made for Pt to D/C home with hospice tomorrow. Inquired Gabino's understanding of hospice philosophy with Gabino stating she knows all about hospice and has friends that work for hospice. Gabino states knowing this day would come but did not think it would be this soon. Continued therapeutic listening. Gabino reports that she does not know how to tell her (Pt). Suggested Pt already knows by remarks he has made with staff. Discussed completing a POLST and completes POLST for Pt with wishes to be DNR and comfort measures only. Pt and 's wishes are to maintane current medications with a request for medication for anxiety. Discussed long acting pain medication due to the frequency of breakthrough pain medication. Pt is agreeable. Pt reports he is ready to go home and states there is nothing the doctors can do for and would rather be home. Pt reports no other concerns at this time. Spoke with bedside RN Yue and discussed case. Spoke with Ayan Mcgrath and discussed case. Ramila has already set up discharge tomorrow with [facility] prior to this yarn wrapper Pt. No concerns reported at this time. Called and spoke with hospital pharmacist Sedrick and consulted regarding Fentanyl Patch for therapeutic equivalency of current breakthrough pain medication taken over the last [address]. [address] Doyle with request for Fentanyl Patch and Ativan. Dr Doyle also signs POLST. Place order for Fentanyl Patch 50mcg and Ativan 0.5mg tablet every 4 hours PRN for anxiety or sleep. Placed 2 copies of POLST and original POLST placed in Pt's hard chart. Original POLST will go home with Pt. Will fax copy of POLST to medical records. Palliative Care will remain available.
--- NOTE | 2019-11-02 17:49 | NUR ---
PATIENT REQUESTS ATIVAN STATES HE WANTS TO SLEEP AND KEEPS HAVING JERKING MOVEMENTS WHICH AWAKEN HIM. PATIENT REACHING FOR THINGS IN AIR WHEN NOTHING IS PRESENT AND OCCASSIONAL CONFUSED CONVERSATION. PATIENT COOPERATIVE AND FOLLOWS DIRECTIONS. DNR ORDERS RECEIVED. DISCUSSED WITH PATIENTS PROTOCOL THAT PURPLE DNR BRACELET IS PLACED ON PATIENTS TO IDENTIFY CODE STATUS. PATIENTS REFUSES PLACEMENT OF DNR BRACELET STATES SHE DOES NOT WANT HER TO KNOW. PATIENTS TELLS ME SHE IS SPENDING THE NIGHT IN PATIENTS ROOM AND CAN NOTIFY ANY STAFF OF PATIENT DNR STATUS SHOULD THE NEED ARISE. PURPLE DNR BRACELET HUNG OUTSIDE OF PATIENTS ROOM. REFUSAL OF PURPLE DNR BRACELET WITNESSED BY JOSEY NICE RN. PLAN IS THAT PATIENT WILL DISCHARGE HOME ON 11/03/19 AND WILL BE FOLLOWED BY HOSPICE. PATIENTS TELLS ME SHE FEELS THAT SHE HAS NECESSARY HELP AT HOME WITH FAMILY MEMBERS ASSISTING. RIGHT DRAIN CONTINUES WITH YELLOW DRAINAGE. LEFT SIDED DRAIN WITH LIGHT RUST COLORED DRAINAGE. FULLER WITH VERY DARK MILLA URINE IN SMALL AMOUNTS.
--- NOTE | 2019-11-03 04:07 | NUR ---
SHIFT SUMMARY POD 3 R NEPHROSTOMY REPLACEMENT PT ALERT BUT DROWSY, AWAKENS AND RESPONDS TO QUESTIONS. ALERT TO SELF, FOLLOWING DIRECTIONS, AND FAMILY. VSS. FULLER PATENT AND DRAINING, RED/YELLOW IN COLOR. BOTH NEPHROSTOMY TUBES PATENT AND DRAINING. MEDICATED FOR ANXIETY WITH IV ATIVAN X1 DURING SHIFT. PT TOLERATED WELL. PT DENIES PAIN WHEN ASKED. COUGHING WHEN DRINKING WATER. PLAN IS TO DISCHARGE HOME TOMORROW AT 10
[2019-11-03] MEDS ORDERED: FENT50TP TOP (09:58)
[2019-11-03] MEDS ORDERED: LORA.5 PO (09:59)
[2019-11-03] MEDS ORDERED: MORP20L PO (10:01)
[2019-11-03] MEDS ORDERED: ABAT250V (10:01)
--- NOTE | 2019-11-03 10:12 | NUR ---
discharged IV DC'D BY JESSE MEAD. REVIEWED DC PAPERWORK W/FAMILY. FAMILY LEFT W/DC PAPERWORK AND POSSESSIONS IN HAND. PT TRANSPORTED VIA GURNEY.
== END 2019-11-03 10:15 | disposition hospice, home (50) | DRG 699 ==
LOC: ER 23:57 → SURS 10-30 05:54
PROVIDERS: Emergency Medicine; Family Medicine; Internal Medicine; ADMIT Internal Medicine
PROC: 0T9330Z Drainage of Right Kidney Pelvis with Drainage Device, Percutaneous Approach (ICD-10-PCS; principal; 2019-10-31)
DX: T83.022A Displacement of nephrostomy catheter, initial encounter (principal); E87.1 Hypo-osmolality and hyponatremia; D68.51 Activated protein C resistance; C78.02 Secondary malignant neoplasm of left lung; C78.01 Secondary malignant neoplasm of right lung; C78.7 Secondary malignant neoplasm of liver and intrahepatic bile duct; C79.51 Secondary malignant neoplasm of bone; I48.20 Chronic atrial fibrillation, unspecified; N13.30 Unspecified hydronephrosis; R31.0 Gross hematuria; F01.50 Vascular dementia, unspecified severity, without behavioral disturbance, psychotic disturbance, mood disturbance, and anxiety; I10 Essential (primary) hypertension; C61 Malignant neoplasm of prostate; C67.9 Malignant neoplasm of bladder, unspecified; E03.9 Hypothyroidism, unspecified; K59.00 Constipation, unspecified; R41.0 Disorientation, unspecified; Z51.5 Encounter for palliative care; G40.909 Epilepsy, unspecified, not intractable, without status epilepticus; Z87.891 Personal history of nicotine dependence; Z88.8 Allergy status to other drugs, medicaments and biological substances; Z86.73 Personal history of transient ischemic attack (TIA), and cerebral infarction without residual deficits; Z88.0 Allergy status to penicillin; Z79.899 Other long term (current) drug therapy; Z79.891 Long term (current) use of opiate analgesic; Z79.52 Long term (current) use of systemic steroids; Z22.39 Carrier of other specified bacterial diseases
CPT/HCPCS: 36415; 50432; 70553; 74177; 76998; 80053; 80069; 80156; 80175; 81001; 85014; 85018; 85025; 85027; 85610; 85730; 86850; 86900; 86901; 87077; 87086; 87186; 96374; 96375; 97110; 97116; 97163; 97530; 99152; 99153; 99285-25; A9270; A9270-GY; A9577; C1729; C1769; C1894; J1200; J1650; J1720; J1956; J2060; J2250; J2930; J3010; J7030; J7040; J7512; Q9967